=== PATIENT | male | born 1985 | race Caucasian/White ===

== ENCOUNTER 2023-07-22 07:02 | Day surgery (SDC) | payer OTHER, SELFPAY ==
[2023-07-22] VITALS (32 sets, daily range): BP systolic 103–142; BP diastolic 64–89; PULSE 62–117; RESP 12–20; TEMP 35.6–37.1; O2SAT 92–100; BMI 27.0; BMI 23.8
--- NOTE | 2023-07-22 07:40 | ED.GENADULT ---
HPI - General Adult General Chief complaint: Abdominal Pain Stated complaint: abdominal pain Time Seen by Provider: 07/22/23 07:40 History of Present Illness HPI narrative: Pt c/o right upper abdominal pain. Pt states the pain and nausea started about 4 days ago. States he had this problem about 1 month ago and was seen in the ER in [place]. Was told he has gallbladder stones. 38-year-old man presenting to the emergency department with complaint of right upper abdominal pain and nausea beginning about 3 and half days ago. Was evaluated apparently a month ago at [place] in the ER and small did not have ultrasound did have CT imaging and noted to have cholelithiasis at that time. He recalls many years history of sudden bouts of nausea, with intense vomiting and then usually a following week of nausea and discomfort. This was again similar starting again this week but was accompanied by more pain in the right upper quadrant than usual. No fever. No hematemesis described. He has been communicating with his [id number], a surgeon to suspects that his gallbladder will need to come out reassuring him that it is a rather routine procedure. Past medical with cholelithiasis, alpha-1 antitrypsin, ocd Related Data Home Medications Medication Instructions Recorded Confirmed fluoxetine 40 mg capsule 40 mg PO QAM 07/22/23 07/22/23 ondansetron 4 mg disintegrating 4 mg PO Q8H PRN 07/22/23 07/22/23 tablet Previous Rx's Medication Instructions Recorded amoxicillin 875 mg-potassium 1 tab PO BID #10 tabs 07/22/23 clavulanate 125 mg tablet hydrocodone 5 mg-acetaminophen 325 1 - 2 tab PO Q6H PRN Pain #10 tabs 07/22/23 mg tablet Allergies Allergy/AdvReac Type Severity Reaction Status Date / Time No Known Drug Allergies Allergy Verified 07/22/23 07:13 Review of Systems Status of ROS: Reports: 6 or more systems reviewed and unremarkable except as noted in History and below PFSH PFS Medical History (Updated 07/22/23 @ 10:49 by Concetta Melton MD) OCD (obsessive compulsive disorder) ?F42.9 - Obsessive-compulsive disorder, unspecified (ICD-10) Social History (Updated 07/22/23 @ 10:49 by Concetta Melton MD) Narrative: 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 Smoking Status: Never smoker How often do you have a drink containing alcohol: never AUDIT-C Alcohol total score: 0 Non-prescribed substance use: denies use Exam Narrative: Exam Narrative: Pleasant. Of good energy. Breathing easily. Lungs appear to be clear. Heart initially on vitals is tachycardic on my auscultation maybe mildly elevated rate but in a regular rhythm. Cranial nerves 2-12 look to be intact. Is wearing glasses. Abdomen with normoactive bowel sounds is soft and very mildly tender in the right upper quadrant. Extremities are well perfused without edema. Const: Vital Signs, click to edit/add: Vital Signs - 24 hr 07/22/23 10:25 07/22/23 13:17 07/22/23 13:22 Temperature 98.7 F 98.3 F Pulse Rate 88 100 88 Pulse Rate [Right Pulse Oximeter] Respiratory Rate 20 18 18 Blood Pressure 122/85 129/77 142/85 H Blood Pressure [Le ft Arm] Blood Pressure [Ri ght Arm] Pulse Oximetry 99 100 100 Oxygen Delivery Az thod Room Air Room Air Room Air 07/22/23 13:27 07/22/23 13:32 07/22/23 13:35 Temperature Pulse Rate 89 87 91 Pulse Rate [Right Pulse Oximeter] Respiratory Rate 20 18 20 Blood Pressure 116/76 122/84 128/79 Blood Pressure [Le ft Arm] Blood Pressure [Ri ght Arm] Pulse Oximetry 100 100 100 Oxygen Delivery Az thod Room Air Room Air Room Air 07/22/23 13:41 07/22/23 13:46 07/22/23 13:51 Temperature Pulse Rate 89 88 93 Pulse Rate [Right Pulse Oximeter] Respiratory Rate 20 18 18 Blood Pressure 131/86 111/64 127/86 Blood Pressure [Le ft Arm] Blood Pressure [Ri ght Arm] Pulse Oximetry 100 100 100 Oxygen Delivery Az thod Room Air Room Air Room Air 07/22/23 14:00 07/22/23 14:30 07/22/23 15:03 Temperature 98.6 F 98 F Pulse Rate 88 Pulse Rate [Right Pulse Oximeter] 71 65 Respiratory Rate 14 12 14 Blood Pressure Blood Pressure [Le ft Arm] 121/74 Blood Pressure [Ri ght Arm] 109/70 107/71 Pulse Oximetry 94 98 Oxygen Delivery Az thod Room Air Room Air Room Air 07/22/23 15:15 07/22/23 15:30 07/22/23 17:30 Temperature 97.7 F Pulse Rate Pulse Rate [Right Pulse Oximeter] 67 71 70 Respiratory Rate 14 14 16 Blood Pressure Blood Pressure [Le ft Arm] Blood Pressure [Ri ght Arm] 112/70 110/72 123/75 Pulse Oximetry 98 100 100 Oxygen Delivery Me thod Room Air Room Air Room Air 07/22/23 18:30 07/22/23 21:00 07/22/23 23:00 Temperature 97.5 F L 97.7 F Pulse Rate Pulse Rate [Right Pulse Oximeter] 85 75 62 Respiratory Rate 18 18 18 Blood Pressure Blood Pressure [Le ft Arm] Blood Pressure [Ri ght Arm] 103/71 107/89 116/72 Pulse Oximetry 100 99 97 Oxygen Delivery Me thod Room Air Room Air Room Air 07/23/23 03:00 Temperature 97.8 F Pulse Rate Pulse Rate [Right Pulse Oximeter] 84 Respiratory Rate 18 Blood Pressure Blood Pressure [Le ft Arm] Blood Pressure [Ri ght Arm] 117/71 Pulse Oximetry 99 Oxygen Delivery Me thod Room Air Documenting provider has reviewed patient's vital signs: yes Course Vital Signs Vital signs: Initial Vital Signs Temperature 96.0 F L 07/22/23 07:09 Temperature Source Temporal Artery Scan 07/22/23 07:09 Pulse Rate 117 H 07/22/23 07:09 Pulse Rhythm Regular 07/22/23 07:09 Respiratory Rate 20 07/22/23 07:09 Blood Pressure 125/80 07/22/23 07:09 Blood Pressure Mean 95 07/22/23 07:09 Blood Pressure Position Sitting 07/22/23 07:09 Pulse Oximetry 100 07/22/23 07:09 Oxygen Delivery Method Room Air 07/22/23 07:09 Vital Signs Temperature 96.0 F L 07/22/23 07:09 Pulse Rate 117 H 07/22/23 07:09 Respiratory Rate 20 07/22/23 07:09 Blood Pressure 125/80 07/22/23 07:09 Pulse Oximetry 100 07/22/23 07:09 Oxygen Delivery Method Room Air 07/22/23 07:09 Temperature 97.8 F 07/23/23 03:00 Pulse Rate 84 07/23/23 03:00 Respiratory Rate 18 07/23/23 03:00 Blood Pressure 117/71 07/23/23 03:00 Pulse Oximetry 99 07/23/23 03:00 Oxygen Delivery Method Room Air 07/23/23 03:00 Medical Decision Making MDM Narrative Medical decision making narrative: Story does sound consistent with biliary colic in the setting of cholelithiasis. Possibly cholecystitis. Will check labs though for lipase, transaminases. Could be constipation or gas. Maybe kidney stones, vascular disruption. Ordered for L of normal saline does not feel he needs anything for pain or nausea. White count and transaminases are reassuring/normal. CRP is 4.1 Discussed ultrasound findings with mechanic and welder indicating thickening gallbladder wall and impacted stone in the neck. Radiology over-read as below FINDINGS: Liver: Normal in size and echotexture. No masses. No intrahepatic biliary dilatation. Gallbladder: Filled with sludge with non mobile stone at the gallbladder neck measuring 3.7 centimeters. Mild gallbladder wall thickening at 4 millimeters. Positive sonographic Sanders sign. Common bile duct: 6 mm. Pancreas: Partially obscured by bowel gas without discrete lesion. Right kidney: Normal in size. Normal echotexture and cortex. No masses, stones, or hydronephrosis. Vasculature: Proximal abdominal aorta and IVC are normal. IMPRESSION: Cholelithiasis with gallbladder sludge, gallbladder wall thickening and positive sonographic Sanders`s sign suggestive of cholecystitis. I discussed these findings with our general surgeon on-call who is evaluating this case. Anticipating surgery yet this morning Lab Data Lab results reviewed: Yes I reviewed the patient's lab results Labs: Lab Results 07/22/23 Range/Units 07:50 WBC 9.55 (4.50-11.00) K/uL RBC 5.45 (4.30-5.90) m/uL Hgb 15.3 (13.5-17.5) gm/dL Hct 44.9 (37.0-53.0) % MCV 82 (80-100) fL MCH 28 (26-34) pg MCHC 34 (32-36) gm/dL RDW Coeff of Henrique 11.5 (11.5-15.5) % Plt Count 359 (140-440) K/uL Neut % (Auto) 76.4 H (42.0-72.0) % Lymph % (Auto) 15.1 L (20-44) % [place] % (Auto) 7.6 (0.0-11.0) % Eos % (Auto) 0.4 (0.0-7.0) % Baso % (Auto) 0.2 (0.0-3.0) % Neut # (Auto) 7.30 H (1.7-7.0) K/uL Lymph # (Auto) 1.40 (0.90-2.90) K/uL [place] # (Auto) 0.70 (0.00-0.90) K/UL Eos # (Auto) 0.04 (0.00-0.50) K/uL Baso # (Auto) 0.02 (0.00-0.30) K/uL Abs Immat Gran (auto) 0.03 (0.00-0.30) K/uL Imm/Tot Granulo (auto) 0.3 % Sodium 141 (135-149) mmol/L Potassium 3.8 (3.6-5.1) mmol/L Chloride 102 (96-114) mmol/L Carbon Dioxide 30 (20-32) mmol/L Anion Gap 9 (7-15) mEq/L BUN 10 (5-24) mg/dL Creatinine 0.8 (0.5-1.5) mg/dL Estimated Creat Clear 144.14 Estimated GFR 115 ml/min Glucose 117 H (60-115) mg/dL Lactate 1.1 (0.5-1.9) mmol/L Calcium 9.7 (8.4-10.6) mg/dL Total Bilirubin 1.0 (0.1-1.5) mg/dL Direct Bilirubin 0.1 (0.0-0.5) mg/dL AST 27 (12-35) U/L ALT 31 (4-50) U/L Alkaline Phosphatase 69 (40-150) U/L C-Reactive Protein 4.1 H (0.5-1.0) mg/dL Total Protein 8.1 (6.0-8.3) g/dL Albumin 4.7 (3.3-5.0) g/dL Lipase 57 (23-300) U/L Ethyl Alcohol < 0.01 L (0.01-0.03) % Discharge Plan Discharge Clinical Impression: Calculous cholecystitis Patient Disposition: XFER to OR Condition: Stable
--- NOTE | 2023-07-22 07:44 | CRLHL7_ITS ---
For Patients: As a result of the Century Cures Act, medical imaging exams and procedure reports are released immediately into your electronic medical record. You may view this report before your referring provider. If you have questions, please contact your health care provider. INDICATION: Right upper quadrant abdomen pain TECHNIQUE: Ultrasound abdomen limited. Sonographic images of the right upper quadrant were obtained using mccain-scale and color Doppler images. COMPARISON: None FINDINGS: Liver: Normal in size and echotexture. No masses. No intrahepatic biliary dilatation. Gallbladder: Filled with sludge with non mobile stone at the gallbladder neck measuring 3.7 centimeters. Mild gallbladder wall thickening at 4 millimeters. Positive sonographic Sanders sign. Common bile duct: 6 mm. Pancreas: Partially obscured by bowel gas without discrete lesion. Right kidney: Normal in size. Normal echotexture and cortex. No masses, stones, or hydronephrosis. Vasculature: Proximal abdominal aorta and IVC are normal. IMPRESSION: Cholelithiasis with gallbladder sludge, gallbladder wall thickening and positive sonographic Sanders`s sign suggestive of cholecystitis. Dictated by Kartik Cabrera MD @ 07/22/2023 9:01:44 AM (Electronically Signed)
[2023-07-22 08:00] LABS: Lactate* 1.1 mmol/L (0.5-1.9)
[2023-07-22] MEDS: 0.9 % SODIUM CHLORIDE 1000 ml 1,000 ML IV (08:05)
[2023-07-22 08:18] LABS: Albumin* 4.7 g/dL (3.3-5.0)
[2023-07-22 08:20] LABS: Chloride* 102 mmol/L (96-114); Potassium* 3.8 mmol/L (3.6-5.1); Sodium* 141 mmol/L (135-149)
[2023-07-22 08:21] LABS: Bilirubin Direct* 0.1 mg/dL (0.0-0.5); Total Protein* 8.1 g/dL (6.0-8.3)
[2023-07-22 08:22] LABS: Alanine Aminotransferase* 31 U/L (4-50); Alkaline Phosphatase* 69 U/L (40-150); Aspartate Amino Transferase* 27 U/L (12-35); Creatinine* 0.8 mg/dL (0.5-1.5); Est. Creatinine Clearance* 144.14; Estimated Glomerular Filt Rate 115 ml/min; Lipase* 57 U/L (23-300)
[2023-07-22 08:23] LABS: Anion Gap 9 mEq/L (7-15); Blood Urea Nitrogen* 10 mg/dL (5-24); Calcium* 9.7 mg/dL (8.4-10.6); Carbon Dioxide* 30 mmol/L (20-32); Glucose* 117 mg/dL (60-115); Hematocrit 44.9 % (37.0-53.0); Hemoglobin* 15.3 gm/dL (13.5-17.5); Mean Corpuscular Hemoglobin 28 pg (26-34); Mean Corpuscular Volume 82 fL (80-100); Red Blood Count 5.45 m/uL (4.30-5.90); White Blood Count* 9.55 K/uL (4.50-11.00)
[2023-07-22 08:24] LABS: Basophils Absolute Auto 0.02 K/uL (0.00-0.30); Basophils Percent Auto 0.2 % (0.0-3.0); Eosinophils Absolute Auto 0.04 K/uL (0.00-0.50); Eosinophils Percent Auto 0.4 % (0.0-7.0); Immature Granulocytes Abs Auto 0.03 K/uL (0.00-0.30); Immature Granulocytes Pct Auto 0.3 %; Lymphocytes Percent Auto 15.1 % (20-44); Mean Corpuscular HGB Conc 34 gm/dL (32-36); Monocytes Percent Auto 7.6 % (0.0-11.0); Neutrophils Percent Auto 76.4 % (42.0-72.0); Platelet Count* 359 K/uL (140-440); RDW Coefficient of Variation % 11.5 % (11.5-15.5)
[2023-07-22 08:25] LABS: C Reactive Protein* 4.1 mg/dL (0.5-1.0)
[2023-07-22 08:33] LABS: Slide Review Reflex No
[2023-07-22 08:34] LABS: Ethanol* < 0.01 % (0.01-0.03)
[2023-07-22] MEDS: LACTATED RINGERS 1000 ML 1,000 ML 100 ML IV ×2 (10:40→14:14)
--- NOTE | 2023-07-22 10:45 | P.GSHP_ITS ---
History of Present Illness History of Present Illness Date Seen: 07/22/23 Chief complaint: abdominal pain Narrative: Adriano Marcelo is a 38 year old male Who presents to the emergency department with several days of abdominal pain and vomiting. He has had similar symptoms in the past for approximately 10 years. He states approximately once a year he will have nausea vomiting after a meal. He states that he will have pain all over his abdomen and vomiting for about a week. He states that by the end of the week he is a mess. As mention this occurs about once a year. This year he has had it 4 times. A month ago when he was in [place], he had similar symptoms. He ended up in the emergency department. A CT scan revealed that he had gallstones. There was no inflammation at the time. He was discharged home. On evening after having fried chicken for lunch she again developed pain and vomited once. He took Zofran which helped. He then noted right upper quadrant pain. This is the 1st time he has been able to pinpoint the pain in his right upper quadrant. This pain persisted throughout the weekend even though he was able to do regular activities. He did vomit once each evening over the weekend and again this morning and then came in to be seen. He has been taking in a small amount of oral intake. He last ate at 9:00 p.m.. Denies fevers but states that he does get sweaty and lightheaded with vomiting. He states that the pain is worse with standing. He states his bowel movements have not changed significantly but might be a bit looser and darker though not bloody. 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 Smoking Status: Never smoker How often do you have a drink containing alcohol: never AUDIT-C Alcohol total score: 0 Non-prescribed substance use: denies use Meds Home Medications and Allergies Home Medications Medication Instructions Recorded Confirmed Type fluoxetine 40 mg capsule 40 mg PO QAM 07/22/23 07/22/23 History ondansetron 4 mg disintegrating 4 mg PO Q8H PRN 07/22/23 07/22/23 History tablet Allergies Allergy/AdvReac Type Severity Reaction Status Date / Time No Known Drug Allergies Allergy Verified 07/22/23 07:13 Exam Narrative: Exam Narrative: General appearance: Alert, cooperative, and in no distress Eyes: PERRLA, eye lids clear, and sclera white HENT Head: Normocephalic Ears: External ears normal Pulmonary: Clear to auscultation bilaterally Cardiovascular Heart: Regular rate and rhythm Extremities: warm and well perfused Gastrointestinal Abdominal: No scars. Mildly tender in the right upper quadrant. Mildly positive Sanders sign. Musculoskeletal: Extremities: Upper: Both upper extremities have normal joint range of motion and intact strength. Lower: Both lower extremities have normal joint range of motion and intact strength. Skin: Normal skin color, texture, and turgor. Neurologic: No focal deficits Psychiatric: Alert, oriented, cooperative, normal affect. Const: Vital Signs, click to edit/add: Vital Signs - 24 hr 07/22/23 07:09 07/22/23 08:11 07/22/23 08:12 Temperature 96.0 F L Pulse Rate 77 78 Pulse Rate [Right Pulse Oximeter] 117 H Respiratory Rate 20 Blood Pressure 119/80 Blood Pressure [Ri ght Upper Arm] 125/80 Pulse Oximetry 100 96 96 Oxygen Delivery [facility] Room Air 07/22/23 08:15 07/22/23 08:30 07/22/23 08:49 Temperature Pulse Rate 75 74 89 Pulse Rate [Right Pulse Oximeter] Respiratory Rate Blood Pressure Blood Pressure [Ri ght Upper Arm] Pulse Oximetry 95 100 100 Oxygen Delivery [facility] 07/22/23 08:50 07/22/23 08:51 07/22/23 09:00 Temperature Pulse Rate 80 77 83 Pulse Rate [Right Pulse Oximeter] Respiratory Rate Blood Pressure 125/88 Blood Pressure [Ri ght Upper Arm] Pulse Oximetry 100 100 100 Oxygen Delivery [facility] 07/22/23 09:01 07/22/23 09:15 07/22/23 09:30 Temperature Pulse Rate 80 82 92 Pulse Rate [Right Pulse Oximeter] Respiratory Rate Blood Pressure 118/79 Blood Pressure [Ri ght Upper Arm] Pulse Oximetry 100 100 100 Oxygen Delivery [facility] 07/22/23 09:31 07/22/23 09:45 07/22/23 10:25 Temperature 98.7 F Pulse Rate 86 88 88 Pulse Rate [Right Pulse Oximeter] Respiratory Rate 20 Blood Pressure 123/85 122/85 Blood Pressure [Ri ght Upper Arm] Pulse Oximetry 100 100 99 Oxygen Delivery Me thod Room Air Results Results Labs: LFTs within normal limits. Lipase normal. Electrolytes within normal limits CBC normal except for slight left shift CRP is elevated at 4.1. Lactate normal Abdominal ultrasound report/results: report reviewed and image reviewed Additional studies: Ultrasound of the abdomen which was performed today shows cholelithiasis with gallbladder sludge, gallbladder wall thickening and positive sonographic Sanders sign suggestive of cholecystitis. Common bile duct measured 6 mm. Assessment and Plan Assessment and plan (1) Calculous cholecystitis: Status: Acute Plan The patient is a 38-year-old male with acute cholecystitis. I explained that the treatment for this is laparoscopic cholecystectomy. We discussed the procedure as well as risks and benefits of surgery which include bleeding, infection, bile leak, conversion to open or injury to other structures, specifically the common bile duct. We also discussed the occasional need for additional procedures. We also discussed recovery. Because of the inflammation of the gallbladder and the acuity of his symptoms I recommended we proceed to surgery this morning. He agreed with this plan and signed informed consent.
--- NOTE | 2023-07-22 10:59 | W.ANESCHARGE ---
Anesthesia Charges Start Date/Time Anesthesia Start Date: 07/22/23 Anesthesia Start Time: 10:47 Stop Date/Time Anesthesia Stop Date: 07/22/23 Anesthesia Stop Time: 13:21
[2023-07-22] MEDS: PIPERACILLIN/TAZOBACTAM 3.375 GM INJ IVPB (11:00)
--- NOTE | 2023-07-22 11:36 | W.ANESCHARGE ---
Anesthesia Charges Start Date/Time Anesthesia Start Date: 07/22/23 Anesthesia Start Time: 10:47 Stop Date/Time Anesthesia Stop Date: 07/22/23 Anesthesia Stop Time: 13:21
--- NOTE | 2023-07-22 13:13 | P.GSOP_ITS ---
Operative Note Pre-op diagnosis: Acute cholecystitis Post-op diagnosis: Same Type of Procedure: Laparoscopic cholecystectomy Indications: The patient is a 38-year-old male who presented to the emergency department with 4 days of abdominal pain and vomiting. Because the pain did not get better he came in to be seen. Workup revealed a thickened gallbladder with a large stone impacting the neck. I recommended cholecystectomy and the patient agreed to proceed. Procedure Description: After discussing the risks and benefits of the procedure, the patient signed informed consent.? The operative site was marked and the patient was brought to the operating room and placed on the operating table in supine position.? Care was taken to pad the patient's pressure points.?? The patient was then intubated by anesthesia.?? The operative site was then prepped and draped in the usual sterile fashion.? A time-out was then performed. Entrance to the abdomen was gained via a 5 mm Visiport in the left upper quadrant. The abdomen was insufflated and briefly surveyed for signs of injury. There was none. A 10 mm umbilical port was placed as well as 2 working ports along the right costal margin, all under direct vision. The patient was then placed in reverse Trendelenburg position with the right side up. The gallbladder was markedly distended and edematous. A needle was advanced into the abdomen to decompress the gallbladder. There was very thick cloudy appearing bile. I did send this for culture. Once the gallbladder was adequately decompressed, the needle was removed and the fundus was grasped and retracted cephalad. The infundibulum was grasped. A combination of hook cautery and blunt dissection was used to carefully dissect out the cystic duct and artery until they could clearly be seen entering the gallbladder without any intervening structures. Because of the edema and inflammation, the tissue was friable and bled easily. The bleeding was controlled however with cautery and small clips were needed. The gallbladder was dissected off the cystic plate to achieve the critical view. Once this was achieved the cystic duct and artery were each clipped with 2 clips proximally and 1 clip distally and transected with the scissors. The gallbladder was then taken off of the liver bed and removed from the abdomen using an Endo- Catch bag. Of note, the stone was so large that this necessitated making the fascial opening as well as the skin larger in order to remove the gallbladder and stone. The gallbladder bed was surveyed for hemostasis which appeared excellent at this point. Because a small amount of bile had spilled, the liver bed was irrigated and suctioned with copious saline. A piece of Surgicel was placed in the gallbladder bed. The ports were then removed and the abdomen desufflated. The fascial incision at the umbilicus was closed with interrupted 0 Vicryl suture. The skin was closed with absorbable subcuticular suture. Sterile dressings were then applied. Instrument sponge and needle counts were correct at the end of the case. The patient was then woken and transferred to the PACU in stable condition. ? The patient tolerated the procedure well. Findings: Acute cholecystitis with large gallstone impacting the neck. Possible gallbladder empyema Anesthesia: GENESIS Surgeon: Concetta Melton MD Estimated blood loss (mL): 100 Specimen: Gallbladder Additional Specimen Information: 1. Gallbladder 2. Bile for culture. Condition: stable Disposition: PACU Date of procedure: 07/22/23
[2023-07-22] MEDS: fentaNYL 100 MCG/2 ML inj 50 MCG IVP ×2 (13:36→13:44)
[2023-07-22] MEDS: KETOROLAC 30 MG/ML inj IVP (13:45)
[2023-07-22] MEDS: HYDROCODONE-ACETAMIN 5-325 MG 1 TAB PO (16:04)
[2023-07-22] MEDS: PIPERACILLIN/TAZOBACTAM 3.375 GM in 0.9 % SODIUM CHLORIDE Mini-bag 100 ML IVPB ×2 (16:30→22:33)
[2023-07-22] MEDS: ACETAMINOPHEN 325 MG TABLET 650 MG PO (18:38)
--- NOTE | 2023-07-22 20:12 | PC.NURSE ---
Nursing Care Hours: [id number] Pt this shift arrived from PACU alert and oriented but fatigued. Denies nausea, rating pain 2/10. Pain increased to 6/10 with movement, treated per eMAR. Ice pack on. 4 lap sites CDI. Bowel sounds hypoactive. Tolerating small amounts of fluids and food. Up to void, ambulates independently.
[2023-07-22] MEDS: LACTATED RINGERS 1000 ML 1,000 ML 125 ML IV (22:34)
[2023-07-23 03:00] VITALS: BP 117/71; PULSE 84; RESP 18; TEMP 36.6; O2SAT 99
[2023-07-23] MEDS: PIPERACILLIN/TAZOBACTAM 3.375 GM in 0.9 % SODIUM CHLORIDE Mini-bag 100 ML IVPB (05:42)
--- NOTE | 2023-07-23 06:46 | PC.NURSE ---
Shift note: Pt is doing well with pain which he rated at 2 and increase when ambulating. Independent in room, A/O. Pt tolerated regular diet well without any abdominal symptoms. Ice pack applied to the incision sites. Vitally stable.
[2023-07-23 07:00] VITALS: BP 114/81; PULSE 77; RESP 12; RESP 14; TEMP 36.6; O2SAT 98
[2023-07-23] MEDS: ACETAMINOPHEN 325 MG TABLET 650 MG PO (09:08)
[2023-07-23] MEDS: FLUOXETINE HCL 20 MG CAPSULE 40 MG PO (09:09)
--- NOTE | 2023-07-23 09:28 | PM.DS1 ---
DS: Providers Provider Date Seen: 07/23/23 Date of admission: 07/22/23 Primary care physician: Case Strong MD Admitting Clinician: Concetta Melton M.D. Attending Physician on discharge: Concetta Melton MD Date of Discharge: 07/23/23 DS: Diagnosis Discharge Diagnosis (1) Calculous cholecystitis: Status: Acute (2) S/P laparoscopic cholecystectomy: Status: Acute DS: Summary Hospital Course Hospital Course: The patient was admitted to the hospital with acute cholecystitis and underwent laparoscopic cholecystectomy urgently. There was some concern for purulence within the gallbladder and so he was kept in the hospital overnight postoperatively on antibiotics. On postop day 1 he was deemed safe for discharge, having pain which was well controlled, being afebrile and tolerating a diet without nausea. Time Spent with Patient Time attestation: Total time spent providing and/or coordinating discharge services: Exam Narrative: Exam Narrative: General: No acute distress CV: Regular rate Respiratory: Breathing nonlabored on room air Abdomen: Appropriately tender for the postop state. Incisions are clean and dry. No ecchymosis or erythema. Const: Vital Signs, click to edit/add: Vital Signs - 24 hr 07/22/23 09:30 07/22/23 09:31 07/22/23 09:45 Temperature Pulse Rate 92 86 88 Pulse Rate [Right Pulse Oximeter] Respiratory Rate Blood Pressure 123/85 Blood Pressure [Le ft Arm] Blood Pressure [Ri ght Arm] Pulse Oximetry 100 100 100 Oxygen Delivery Me thod 07/22/23 10:25 07/22/23 13:17 07/22/23 13:22 Temperature 98.7 F 98.3 F Pulse Rate 88 100 88 Pulse Rate [Right Pulse Oximeter] Respiratory Rate 20 18 18 Blood Pressure 122/85 129/77 142/85 H Blood Pressure [Le ft Arm] Blood Pressure [Ri ght Arm] Pulse Oximetry 99 100 100 Oxygen Delivery Me thod Room Air Room Air Room Air 07/22/23 13:27 07/22/23 13:32 07/22/23 13:35 Temperature Pulse Rate 89 87 91 Pulse Rate [Right Pulse Oximeter] Respiratory Rate 20 18 20 Blood Pressure 116/76 122/84 128/79 Blood Pressure [Le ft Arm] Blood Pressure [Ri ght Arm] Pulse Oximetry 100 100 100 Oxygen Delivery Me thod Room Air Room Air Room Air 07/22/23 13:41 07/22/23 13:46 07/22/23 13:51 Temperature Pulse Rate 89 88 93 Pulse Rate [Right Pulse Oximeter] Respiratory Rate 20 18 18 Blood Pressure 131/86 111/64 127/86 Blood Pressure [Le ft Arm] Blood Pressure [Ri ght Arm] Pulse Oximetry 100 100 100 Oxygen Delivery Me thod Room Air Room Air Room Air 07/22/23 14:00 07/22/23 14:30 07/22/23 15:03 Temperature 98.6 F 98 F Pulse Rate 88 Pulse Rate [Right Pulse Oximeter] 71 65 Respiratory Rate 14 12 14 Blood Pressure Blood Pressure [Le ft Arm] 121/74 Blood Pressure [Ri ght Arm] 109/70 107/71 Pulse Oximetry 94 98 Oxygen Delivery Me thod Room Air Room Air Room Air 07/22/23 15:15 07/22/23 15:30 07/22/23 17:30 Temperature 97.7 F Pulse Rate Pulse Rate [Right Pulse Oximeter] 67 71 70 Respiratory Rate 14 14 16 Blood Pressure Blood Pressure [Le ft Arm] Blood Pressure [Ri ght Arm] 112/70 110/72 123/75 Pulse Oximetry 98 100 100 Oxygen Delivery Me thod Room Air Room Air Room Air 07/22/23 18:30 07/22/23 21:00 07/22/23 23:00 Temperature 97.5 F L 97.7 F Pulse Rate Pulse Rate [Right Pulse Oximeter] 85 75 62 Respiratory Rate 18 18 18 Blood Pressure Blood Pressure [Le ft Arm] Blood Pressure [Ri ght Arm] 103/71 107/89 116/72 Pulse Oximetry 100 99 97 Oxygen Delivery Me thod Room Air Room Air Room Air 07/23/23 03:00 Temperature 97.8 F Pulse Rate Pulse Rate [Right Pulse Oximeter] 84 Respiratory Rate 18 Blood Pressure Blood Pressure [Le ft Arm] Blood Pressure [Ri ght Arm] 117/71 Pulse Oximetry 99 Oxygen Delivery Me thod Room Air DS: Data Data Completed and Pending Pending studies at discharge: Bile culture Labs on day of discharge: Preliminary micro results at discharge 07/22/23 14:20 Aerobic Culture - Preliminary Gallbladder Fluid Anaerobic Culture - Preliminary Culture in Progress 07/22/23 08:30 Blood Culture - Preliminary Blood NO GROWTH AFTER 24 HOURS 07/22/23 07:50 Blood Culture - Preliminary Blood NO GROWTH AFTER 24 HOURS Discharge Plan Discharge Disposition: Home, Self-Care Discharging Surgeon: Concetta Melton Follow-Up Appointment: 2 weeks Prescriptions: New hydrocodone-acetaminophen 5-325 mg Tablet 1 - 2 tab PO Q6H PRN (Reason: Pain) Qty: 10 0RF amoxicillin-pot clavulanate 875-125 mg tablet 1 tab PO BID Qty: 10 0RF Continued fluoxetine 40 mg capsule 40 mg PO QAM ondansetron 4 mg tablet,disintegrating 4 mg PO Q8H PRN Activity Level: No strenuous activity Activity Detail: No lifting more than 20 lb for 2 weeks Discharge Diet: Regular Patient Instructions: Hydrocodone/Acetaminophen (By mouth), Amoxicillin/Clavulanate Potassium (By mouth), Surgical Site Infections (DC), General Anesthesia (DC), Laparoscopic Cholecystectomy (DC), Post-Operative Instructions: Laparoscopic Cholecystectomy Additional Instructions: Wound care: Your sutures are under the skin and will dissolve over time. Leave steri strips (white bandages) over incisions until they fall off (or remove after 7 days). OK to shower tomorrow but avoid bathing, soaking or swimming for 2 weeks. Pat the incisions dry. No need to wash or scrub the area. Apply ice to the area as needed for swelling. It is also OK to use a heating pad if this provides more comfort to you. Pain control: You were prescribed a pain medication. This medication contains acetaminophen (Tylenol). If you are taking your prescribed pain pills 4 times daily, do not take additional acetaminophen. As your pain improves, you can try taking acetaminophen instead of the prescribed pain pill. It is ok to take Ibuprofen or Naproxen (per directions on packaging). This medication helps with inflammation and swelling. Take an [id number] stool softener while you are taking prescribed pain medications to help alleviate constipation. I recommend Senna and/or Colace. Take as directed on package. If you have not had a bowel movement in 3 days, try taking Miralax as directed on the package. All of these are available over the counter. Follow-up Follow up with Dr. Melton in 2-3 weeks Please call if you are experiencing severe pain, nausea, vomiting, difficulty urinating, fever or have not had bowel movement in 4 days after surgery. Forms: Work/School Release Follow-up: Concetta Melton MD [Emergency Provider] - 07/30/23 10:30 am ([facility] for postop flooow-up.) Provider,Not a Local [Referring] - Discharge Orders: Discharge Order (Routine); Ordered 07/23/23 Ordered By: Concetta Melton
[2023-07-23 11:00] VITALS: BP 115/79; PULSE 72; RESP 14; TEMP 36.8; O2SAT 100
--- NOTE | 2023-07-23 17:10 | PC.NURSE ---
Nursing Care Hours: [id number] pt this shift calm and cooperative, alert and oriented. Independent ambulation in room. C/o pain to abdomen, treated per eMAR and ice pack, treatment effective. Tolerating regular diet, denies nausea. Lap sites CDI. Bowel sounds active x4. IV removed for discharge. Went over discharge instructions, answered all questions and concerns. Ambulated off the unit, picked up by a friend at front door.
== END 2023-07-23 11:01 | disposition home or self-care (01) ==
LOC: ED 09:57 → SS 10:10 → MEDSURG 14:21
PROVIDERS: Family Medicine; Emergency Provider Surgery; PCP Student in an Organized Health Care Education/Training Program; Visit Provider Surgery
PROC: 0FT44ZZ Resection of Gallbladder, Percutaneous Endoscopic Approach (ICD-10-PCS; CPT 47562; principal; 2023-07-22 11:30)
DX: K80.00 Calculus of gallbladder with acute cholecystitis without obstruction (principal)
CPT/HCPCS: 47562; 36415; 76705; 790; 80048; 80076; 81001; 82077; 83605; 83690; 85025; 86140; 87040; 87070; 87075; 87205; 88304; 99284; 99285; A9270; J0330; J1100; J1170; J1885; J2250; J2405; J2543; J2704; J3010; J3490; J7030; J7120

== ENCOUNTER 2024-01-17 09:26 | Emergency (ER) | payer OTHER, SELFPAY ==
[2024-01-17 09:38] VITALS: BP 117/92; PULSE 108; RESP 18; TEMP 36.3; O2SAT 99; BMI 25.7
--- NOTE | 2024-01-17 10:32 | ED.ABDPAIN ---
HPI - Abdominal Pain General Chief Complaint: Abdominal Pain Stated Complaint: Abdominal pain, vomiting Time Seen by Provider: 01/17/24 10:24 History of Present Illness HPI narrative: This 38-year-old male comes in with episodes of crampy abdominal pain with nausea and vomiting. This happened about a week ago and then he felt fine until 3 days ago when he had another severe cramp with nausea and vomiting. He felt fine again the next 2 days until today when he had more of the same. He did have his gallbladder out about 6 months ago and states that he has been doing well except that some of these symptoms feel similar. He has not had any fever. He does not report any diarrhea. Related Data Home Medications Medication Instructions Recorded Confirmed fluoxetine 40 mg capsule 40 mg PO QAM 07/22/23 01/17/24 ondansetron 4 mg disintegrating 4 mg PO Q8H PRN 07/22/23 07/22/23 tablet Previous Rx's Medication Instructions Recorded amoxicillin 875 mg-potassium 1 tab PO BID #10 tabs 07/22/23 clavulanate 125 mg tablet hydrocodone 5 mg-acetaminophen 325 1 - 2 tab PO Q6H PRN Pain #10 tabs 07/22/23 mg tablet ketorolac 10 mg tablet 10 mg PO Q8H 5 days #15 tabs 01/17/24 ondansetron HCl 4 mg tablet 4 mg PO Q6H #20 tabs 01/17/24 Allergies Allergy/AdvReac Type Severity Reaction Status Date / Time No Known Drug Allergies Allergy Verified 01/17/24 09:42 Review of Systems Status of ROS Reports: 10 or more systems reviewed and unremarkable except as noted in History and below Narrative Constitutional: No fevers, no weight gain or loss. Eyes: No discharge. No vision changes. HENT: No congestion, no sore throat, no ear pain. Cardiovascular: No chest pain, no palpitations. Respiratory: No shortness of breath, no wheezes, no cough. Gastrointestinal: Abdominal pain episodes with vomiting as described above. Genitourinary: No dysuria, no hematuria. Musculoskeletal: Normal range of motion. Skin: No rashes, no pruritis. Neurological: No dizziness, weakness, sensory change, speech change. Endo/Heme/Allergies: No bruising or bleeding. No polydipsia. Pysch: no suicidality, no anxiety, no insomnia. All other systems reviewed and are negative. 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 Smoking Status: Never smoker How often do you have a drink containing alcohol: never AUDIT-C Alcohol total score: 0 Non-prescribed substance use: denies use Exam Narrative: Exam Narrative: Constitutional: Well-developed, well-nourished, no acute distress. HEENT: Normocephalic, atraumatic. Neck: Normal range of motion. Nontender. Supple. Heart: Regular. No murmurs. Normal rate. Intact distal pulses. Lungs: Clear to auscultation. No chest discomfort. No wheezes, rhonchi, or rales. Abdomen: Normal bowel sounds. Nontender. No rebound tenderness. Genitalia: Deferred. Back: No midline tenderness. Normal range of motion. Extremities: Normal range of motion. No injury. Skin: Intact. No rash. Warm. No erythema or pallor. Neurologic: No altered sensation. No weakness. Alert and oriented. Psychiatric: No suicidality. No anxiety or depression. No insomnia. Nursing notes and vitals signs are reviewed. Const: Vital Signs, click to edit/add: Vital Signs - 24 hr 01/17/24 09:38 Temperature 97.4 F L Pulse Rate [Right Pulse Oximeter] 108 H Respiratory Rate 18 Blood Pressure [Le ft Upper Arm] 117/92 H Pulse Oximetry 99 Oxygen Delivery Me thod Room Air Course Vital Signs Vital signs: Initial Vital Signs Temperature 97.4 F L 01/17/24 09:38 Temperature Source Temporal Artery Scan 01/17/24 09:38 Pulse Rate 108 H 01/17/24 09:38 Pulse Rhythm Regular 01/17/24 09:38 Respiratory Rate 18 01/17/24 09:38 Blood Pressure 117/92 H 01/17/24 09:38 Blood Pressure Mean 100 01/17/24 09:38 Blood Pressure Position Sitting 01/17/24 09:38 Pulse Oximetry 99 01/17/24 09:38 Oxygen Delivery Method Room Air 01/17/24 09:38 Vital Signs Temperature 97.4 F L 01/17/24 09:38 Pulse Rate 108 H 01/17/24 09:38 Respiratory Rate 18 01/17/24 09:38 Blood Pressure 117/92 H 01/17/24 09:38 Pulse Oximetry 99 01/17/24 09:38 Oxygen Delivery Method Room Air 01/17/24 09:38 Temperature 97.4 F L 01/17/24 09:38 Pulse Rate 108 H 01/17/24 09:38 Respiratory Rate 18 01/17/24 09:38 Blood Pressure 117/92 H 01/17/24 09:38 Pulse Oximetry 99 01/17/24 09:38 Oxygen Delivery Method Room Air 01/17/24 09:38 Medications Administered Medications: Generic Name Dose Route Start Last Admin Trade Name Freq PRN Reason Stop Dose Admin Sodium Chloride 1,000 mls @ 1,000 mls/hr 01/17/24 10:45 01/17/24 10:38 0.9 % Sodium Chloride 1000 Ml IV 01/17/24 11:44 1,000 mls/hr .Q1H FARNAZ Administration Discontinued Medications Generic Name Dose Route Start Last Admin Trade Name Freq PRN Reason Stop Dose Admin Ondansetron HCl 4 mg 01/17/24 10:31 01/17/24 10:39 Ondansetron 2 Mg/Ml Inj IVP 01/17/24 10:32 4 mg ONCE ONE Administration MDM - Abdominal Pain MDM Narrative Medical decision making narrative: This patient comes in reporting some episodes of crampy abdominal pain in the upper epigastric region with associated vomiting and nausea. An IV was established where he did receive a L of normal saline and 4 mg of Zofran. He is feeling better. Labs are acquired and these returned with reassuring findings. I did discuss imaging options with the patient but he declined these for now. The patient's vital signs are reassuring and along with lab results and exam he is okay to return home. I did provide prescription for Zofran and Toradol. I encouraged him also to use a proton pump inhibitor such as Prilosec. Lab Data Labs: Lab Results 01/17/24 Range/Units 09:50 WBC 7.60 (4.50-11.00) K/uL RBC 5.93 H (4.30-5.90) m/uL Hgb 16.9 (13.5-17.5) gm/dL Hct 48.2 (37.0-53.0) % MCV 81 (80-100) fL MCH 29 (26-34) pg MCHC 35 (32-36) gm/dL RDW Coeff of Henrique 11.7 (11.5-15.5) % Plt Count 376 (140-440) K/uL Neut % (Auto) 64.0 (42.0-72.0) % Lymph % (Auto) 26.6 (20-44) % Saunders % (Auto) 8.6 (0.0-11.0) % Eos % (Auto) 0.3 (0.0-7.0) % Baso % (Auto) 0.4 (0.0-3.0) % Neut # (Auto) 4.87 (1.7-7.0) K/uL Lymph # (Auto) 2.02 (0.90-2.90) K/uL Saunders # (Auto) 0.70 (0.00-0.90) K/UL Eos # (Auto) 0.02 (0.00-0.50) K/uL Baso # (Auto) 0.03 (0.00-0.30) K/uL Abs Immat Gran (auto) 0.01 (0.00-0.30) K/uL Imm/Tot Granulo (auto) 0.1 % Sodium 140 (135-149) mmol/L Potassium 3.7 (3.6-5.1) mmol/L Chloride 99 (96-114) mmol/L Carbon Dioxide 29 (20-32) mmol/L Anion Gap 12 (7-15) mEq/L BUN 15 (5-24) mg/dL Creatinine 0.9 (0.5-1.5) mg/dL Estimated Creat Clear 128.12 Estimated GFR 111 ml/min Glucose 116 H (60-115) mg/dL Calcium 10.0 (8.4-10.6) mg/dL Total Bilirubin 1.2 (0.1-1.5) mg/dL Direct Bilirubin 0.2 (0.0-0.5) mg/dL AST 30 (12-35) U/L ALT 27 (4-50) U/L Alkaline Phosphatase 61 (40-150) U/L Total Protein 8.9 H (6.0-8.3) g/dL Albumin 5.3 H (3.3-5.0) g/dL Lipase 73 (23-300) U/L SARS-CoV-2 (PCR) Negative SARS-CoV-2 (Negative) Influenza Type A (PCR) Negative PCR FLU A (Negative) Influenza Type B (PCR) Negative PCR FLU B (Negative) Discharge Plan Discharge Clinical Impression: Gastroenteritis Patient Disposition: Home, Self-Care Condition: Improved Additional Instructions: Take medication as needed and indicated. That it is also recommended that she use Prilosec, Nexium, or Prevacid as needed and directed. Follow up with MD or return if symptoms are persistent or worsening. Prescriptions: New ondansetron HCl 4 mg tablet 4 mg PO Q6H Qty: 20 0RF ketorolac 10 mg tablet 10 mg PO Q8H 5 Days Qty: 15 0RF No Action fluoxetine 40 mg capsule 40 mg PO QAM ondansetron 4 mg tablet,disintegrating 4 mg PO Q8H PRN hydrocodone-acetaminophen 5-325 mg Tablet 1 - 2 tab PO Q6H PRN (Reason: Pain) Qty: 10 0RF amoxicillin-pot clavulanate 875-125 mg tablet 1 tab PO BID Qty: 10 0RF Follow Up/Referrals: Case Strong MD [Primary Care Provider] - Stand Alone Forms: [facility] Info Instructions
[2024-01-17 10:38] LABS: Basophils Absolute Auto 0.03 K/uL (0.00-0.30); Basophils Percent Auto 0.4 % (0.0-3.0); Eosinophils Absolute Auto 0.02 K/uL (0.00-0.50); Eosinophils Percent Auto 0.3 % (0.0-7.0); Hematocrit 48.2 % (37.0-53.0); Hemoglobin* 16.9 gm/dL (13.5-17.5); Immature Granulocytes Abs Auto 0.01 K/uL (0.00-0.30); Immature Granulocytes Pct Auto 0.1 %; Lymphocytes Absolute Auto 2.02 K/uL (0.90-2.90); Lymphocytes Percent Auto 26.6 % (20-44); Mean Corpuscular HGB Conc 35 gm/dL (32-36); Mean Corpuscular Hemoglobin 29 pg (26-34); Mean Corpuscular Volume 81 fL (80-100); Monocytes Percent Auto 8.6 % (0.0-11.0); Neutrophils Absolute Auto 4.87 K/uL (1.7-7.0); Platelet Count* 376 K/uL (140-440); RDW Coefficient of Variation % 11.7 % (11.5-15.5); Red Blood Count 5.93 m/uL (4.30-5.90)
[2024-01-17] MEDS: 0.9 % SODIUM CHLORIDE 1000 ml 1,000 ML IV (10:38)
[2024-01-17] MEDS: ONDANSETRON 2 MG/ML inj 4 MG IVP (10:39)
[2024-01-17 10:41] LABS: PCR FLU A Negative PCR FLU A (Negative); PCR FLU B Negative PCR FLU B (Negative); SARS PCR* Negative SARS-CoV-2 (Negative)
[2024-01-17 10:44] LABS: Slide Review Reflex No
[2024-01-17 10:51] LABS: Albumin* 5.3 g/dL (3.3-5.0)
[2024-01-17 10:52] LABS: Chloride* 99 mmol/L (96-114); Potassium* 3.7 mmol/L (3.6-5.1); Sodium* 140 mmol/L (135-149)
[2024-01-17 10:54] LABS: Anion Gap 12 mEq/L (7-15); Bilirubin Direct* 0.2 mg/dL (0.0-0.5); Bilirubin Total* 1.2 mg/dL (0.1-1.5); Carbon Dioxide* 29 mmol/L (20-32); Creatinine* 0.9 mg/dL (0.5-1.5); Est. Creatinine Clearance* 128.12; Estimated Glomerular Filt Rate 111 ml/min
[2024-01-17 10:55] LABS: Alanine Aminotransferase* 27 U/L (4-50); Alkaline Phosphatase* 61 U/L (40-150); Aspartate Amino Transferase* 30 U/L (12-35); Blood Urea Nitrogen* 15 mg/dL (5-24); Glucose* 116 mg/dL (60-115); Lipase* 73 U/L (23-300); Total Protein* 8.9 g/dL (6.0-8.3)
== END 2024-01-17 11:44 | disposition home or self-care (01) ==
PROVIDERS: Emergency Provider Emergency Medicine Emergency Medical Services; PCP Student in an Organized Health Care Education/Training Program
DX: K52.9 Noninfective gastroenteritis and colitis, unspecified (principal)
CPT/HCPCS: 36415; 80048; 80076; 83690; 85025; 87631; 96361; 96374; 99284; J2405; J7030

== ENCOUNTER 2024-12-04 11:58 | Emergency (ER) | payer OTHER, SELFPAY ==
--- OUTSIDE RECORDS SUMMARY | 2024-12-04 12:00 | XMS_ITS | Clinical Summary ---
Author Organization [facility] Address [place], [place] [address] Care Team Providers Care Locker Room Clerk Name Role Phone Votel, Cassius Rodriguez MD Primary Care Provider + Allergies No known active allergies Medications fluticasone (50 mcg per actuation) nasal solution (FLONASE) Inhale 1 [place] into both nostrils once daily. 1 Bottle 0 6 Active FLUoxetine (PROZAC) 40 mg capsuleIndicatio ns:Obsessive-com pulsive disorder, unspecified type TAKE 1 CAPSULE BY MOUTH EVERY DAY IN THE MORNING 90 Capsule 4 Active Active Problems Problem Noted Date Diagnosed Date Occupational circumstances 02/09/2013 Unspecified hearing loss 02/09/2013 Overview (02/09/2013): both ears, low to mid frequency mild rising to normal high frequencies Immunizations Name Administration Dates Next Due COVID-19 VACCINE SPIKEVAX (M ODERNA 50MCG/0.5ML) 12YO+ PFS 10/07/2023 COVID-19 vaccine (Moderna 100mcg/0.5mL) PF, MDV 10/13/2021,03/09/2021,02/09/2021 Hepatitis B (Adult) 08/23/1997,04/22/1997,1996 Hepatitis B, Unspecified 08/23/1997,04/22/1997,0 02/26/1997 Influenza A (H1N1), Inactivated 11/30/2009 Influenza Virus, Unspecified 07/14/2015,07/15/20 14,07/16/2012 Influenza, IIV3 (Age 6-35 mos) 07/16/2018 Influenza, IIV3 (Age >=3 years) 07/17/2013,07/16 Influenza, IIV4 10/07/2023,,07/20/2019,2014,07/15/2014 Influenza, IIV4 (=>6mos) MDV 07/17/2017,08/17/20 16 MMR 02/26/1997,08/03/1985 TD, UNSPECIFIED 02/26/1997 Td (Age >=7 Years) 02/26/1997 Td, Preservative Free (age > = 7 Years) 02/26/1997 Tdap 02/09/2013 Family History Medical History Relation Name Comments Heart Disease Father [id number] Relation Name Status Comments Brother Alive Father (Age 63) Mother Alive Social History Tobacco Use Types Packs/Day Years Used Date Smoking Tobacco: Never Smokeless Tobacco: Never Tobacco Cessation:Counseling Given: Yes Alcohol Use Standard Drinks/Week Comments Not Currently 0 (1 standard drink = 0.6 oz pur e alcohol) rare PHQ-2 Answer Date Recorded PHQ-2 TOTAL SCORE 0 08/22/2022 Social Connections Answer Date Recorded Frequency of Communication with Friends and Fami ly Not on file 05/11/2024 Financial Resource Strain Answer Date R ecorded Difficulty of Paying Living Expenses 3 04/24/2023 Difficulty of Paying Living Expenses Not on file 04/24/2023 Food Insecurity Answer Date Recorded Worried About Running Out of Food in the Last Ye ar 1 04/24/2023 Transportation Needs Answer Date Record ed Lack of Transportation (Medical) 1 04/24/2023 Housing Stability Answer Date Recorded Unable to Pay for Housing in the Last Year 1 04/24/2023 Sex and Gender Information Value Date Recorded Sex Assigned at Not on file Legal Sex Male 9:04 AM CDT Gender Identity Not on file Sexual Orientation Not on file 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 Not on file Not on file Obstetrics History Last Filed Vital Signs Vital Sign Reading Time Taken Comments Blood Pressure 112/78 04/24/2023 11:17 AM CDT Pulse 72 04/24/2023 11:17 AM CDT Temperature 36.6 C (97.9 F) 04/24/2023 11:17 AM CDT Respiratory Rate - - Oxygen Saturation 100% 04/24/2023 11:17 AM CDT Inhaled Oxygen Concentration - - Weight 85.3 kg (188 lb) 04/24/2023 11:17 AM CDT Height 188 cm (6' 2) 07/31/2022 7:47 AM CDT Body Mass Index 24.14 07/31/2022 7:47 AM CDT Plan of Treatment Health Maintenance Due Date Last Done Comments HIV for age 15-65 1999 Hepatitis C screening for age 18-79 2002 Lipids for age 35-44 2019 Tetanus booster 02/09/2023 02/09/2013, 02/09, 02/26/1997, Additional history exists BMI (ht and wt on same day) for age 18+ 07/31/2023 07/31/2022, 09/25/2018, 06/24/2018, Additional history exists Depression screening for age 12+ 08/22/2023 08/22/2022, 07/31/2022, 06/07/2021, Additional history exists COVID-19 vaccine series (2023- season) 2024 10/07/2023, 10/13/2021, 03/09/2021, Additional history exists Influenza for age 9-49 07/12/2024 , 10/13/2021, 07/20/2019, Additional history exists Tdap Completed 02/09/2013 Pneumococcal series for age 6-49 Aged Out No longer eligible based on patient's age to complete this topic Care Teams Locker Room Clerk Relationship Specialty Start Date End Date Votel, Cassius Rodriguez MD [address] [place] [address] PCP - General Family Practice 02/06/18
--- OUTSIDE RECORDS SUMMARY | 2024-12-04 12:00 | XMS_ITS | Clinical Summary ---
Author Organization [facility] Address [address] [place] [address] Care Team Providers Care Snuff Grinder And Screener Name Role Phone Carlos Enrique Strong M.D. Primary Care Provider [phone] Source Comments Patient records contain information from all sites at [facility]. For routine questions regarding patient records, call [phone] during business hours, M-F 8:00 AM - 5:00 PM Central Time. Record requests for emergency care only can be directed to [phone] at any time.[facility] Allergies No known active allergies Medications * This document contains information received from the source organization and may not represent a complete record from that organization. FLUoxetine (PROzac) 40 mg capsule Take 1 capsule (40 mg total) by mouth every morning. 90 capsule 3 02/11/20 24 Active omeprazole (PriLOSEC) [address] capsuleIndications :Pain Right Upper Quadrant,Nausea And Vomiting Take 1 capsule (20 mg total) by mouth daily. 90 capsule 3 02/17/20 24 025 Active Additional Information Patient taking differently:20 mg oralAs needed, Reported on 10/06/2024 ondansetron ODT (ZOFRAN-ODT) 4 mg disintegrating tabletIndications: Nausea Dissolve 1 tablet (4 mg total) in the mouth every 8 (eight) hours as needed for nausea or vomiting for up to 10 doses. 10 tablet 03/09/20 24 Active Active Problems Problem Noted Date Diagnosed Date Pain Epigastric 10/06/2024 Gastroesophageal Reflux Disease Without Esophagi tis 10/06/2024 Deficiency Alpha 1 Antitrypsin 05/29/2023 Depression Major One Episode Full Remission 01/09 Encounters Date Type Department Care Team Description 11/26/2024 3:03 PM WEIGHER BULKER - 11/26/2024 11:59 PM WEIGHER BULKER Hospital Encounter Department of Laboratory Medicine in [address] [phone] Carlos Enrique Strong M.D. Encounter For Screening For Respiratory Tuberculosis Discharge Disposition: Home or Self Care 10/06/2024 9:00 AM WEIGHER BULKER Office Visit Department of Gastroenterology in [address] [phone] Elsy Qureshi APRN, C.N.P., D.N.P., M.S.N. Gastroesophageal Reflux Disease Without Esophagitis (Primary Dx); Pain Epigastric; Nausea; Gastroenteritis Viral Or Presumed Viral; Deficiency Alpha 1 Antitrypsin (HCC) Discharge Disposition: Home or Self Care from Last 3 Months Immunizations Immunization Administration Dates Next Due HepB, Unspecified 08/23/1997,04/22/1997,02/26/19 97 Influenza TIV (IM) 07/16/2012 Influenza, Injectable, Quadrivalent 07/17/2017 Influenza, Unspecified 07/14/2015,07/15/2014 MMR 02/26/1997,08/03/1985 SARS-COV-2 (COVID-19) - MODE RNA (12 YEARS AND OLDER) Fall Seasonal 10/06/2024 SARS-COV-2 (COVID-19) - MODERNA(Discontinued) 10/13/2021 Td, (Adult) Unspecified 02/26/1997,02/26/1997 Tdap 08/07/2023,02/09/2013 influenza trivalent vaccine (6 months and older)(PF) 10/06/2024,07/16/2018 influenza vaccine quad (FLUZ ONE/FLUARIX) (6 months and older)(PF) 10/13/2021,07/20/2019 Family History Medical History Relation Name Comments Coronary artery disease Father Mc Marcelo Sandeep ntified very very low ejection fraction at ~60. Treatment worked well and heart looked much better. of ventricular fibrillation at 64. Migraines Father Mc Marcelo Had sporadic b ad headaches. Maybe not migranes. Other cancer Mother Armida Marcelo Benign growth a ttached to nerve near hip. Had surgically removed. No other treatment needed Breast cancer Paternal Grandmother Angelica Marcelo i n early 60s. Relation Name Status Comments Father Mc Marcelo Mother Armida Marcelo Paternal Grandmother Angelica Marcelo Social History Tobacco Use Types Packs/Day Years Used Date Smoking Tobacco: Former Smokeless Tobacco: Never Tobacco Cessation:Counseling Given: Not Answered Alcohol Use Standard Drinks/Week Comments Yes 0 (1 standard drink = 0.6 oz pur e alcohol) occasional [facility] Utilities Answer Date Recorded In the past 12 months has e electric, gas, oil, or water [employer] threatened to shut off services in your home? No 02/16/2024 Humiliation, Afraid, Rape, and Kick questionnair e Answer Date Recorded Within the last year, have y ou been afraid of your partner or ex-partner? No 01/14/2023 Within the last year, have y ou been humiliated or emotionally abused in other ways by your partner or ex-partner? No Within the last year, have y ou been kicked, hit, slapped, or otherwise physically hurt by your partner or ex-partner? No 01/14/2023 Within the last year, have y ou been raped or forced to have any kind of sexual activity by your partner or ex-partner? No 01/14/2023 Social Connection and Isolat ion Panel [NHANES] Answer Date Recorded In a typical week, how many times do you talk on the phone with family, friends, or neighbors? Three times a week 01/14/2023 How often do you get togethe r with friends or relatives? Once a week 01/14/2023 How often do you attend chur ch or muslim services? More than 4 times per year 01/14/2023 Do you belong to any clubs o r organizations such as mosque groups, unions, fraternal or athletic groups, or school groups? Yes 01/14/2023 How often do you attend meet ings of the clubs or organizations you belong to? 1 to 4 times per year 01/14/2023 Are you , , di vorced, , never , or living with a partner? 01/14/2023 AUDIT-C Answer Date Recorded Q1: How often do you have a drink containing alc ohol? Monthly or less 01/14/2023 Q2: How many drinks containi ng alcohol do you have on a typical day when you are drinking? 1 or 2 01/14/2023 Q3: How often do you have si x or more drinks on one occasion? Less than monthly 01/14/2023 Overall Financial Resource Strain (CARDIA) Answe r Date Recorded How hard is it for you to pa y for the very basics like food, housing, medical care, and heating? Not very hard 01/14/2023 PHQ-2 Answer Date Recorded PHQ-2 Score 0 03/09/2024 [facility] of Occupat ional Health - Occupational Stress Questionnaire Answer Date Recorded Do you feel stress - tense, restless, nervous, or anxious, or unable to sleep at night because your mind is troubled all the time - these days? Only a little 01/14/2023 Exercise Vital Sign Answer Date Recorde d On average, how many days pe r week do you engage in moderate to strenuous exercise (like a brisk walk)? 4 days 02/16/2024 On average, how many minutes do you engage in exercise at this level? 20 min 02/16/2024 Hunger Vital Sign Answer Date Recorded Within the past 12 months, y ou worried that your food would run out before you got the money to buy more. Never true 02/16/20 24 Within the past 12 months, t he food you bought just didn't last and you didn't have money to get more. Never true 02/16/2024 PRAPARE - Transportation Answer Date Re corded In the past 12 months, has l ack of transportation kept you from medical appointments or from getting medications? No 05/2024 In the past 12 months, has l ack of transportation kept you from meetings, work, or from getting things needed for daily living? No 02/16/2024 Depression Answer Date Recor ded PHQ-9 Total Score (max 27) 1 03/09 Nutrition Answer Date Recorded On average, how many serving s of fruits and vegetables do you eat per day (serving size is equal to 1 cup or approximately the size of a tennis ball)? 0-2 02/16/2024 Dental Answer Date Recorded Dental: Regular Dentist Yes 01/15/20 Employment Answer Date Recorded Employment status Employed and actively working without restrictions 02/16/2024 Housing Stability Answer Date Recorded What is your living situation today? I have a [facility] place to live 02/16/2024 Education Answer Date Recorded What is the highest level of school you have completed or the highest degree you have received? 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) 01/14/2023 Sex and Gender Information Value Date Recorded Sex Assigned at Male 08/06/2023 4:31 PM CDT Legal Sex Male 10:33 AM WEIGHER BULKER Gender Identity Male 01/31/2018 7:59 PM CDT Sexual Orientation Straight 01/31/2018 7: 59 PM CDT Last Filed Vital Signs Vital Sign Reading Time Taken Comments Blood Pressure 112/62 10/06/2024 9:01 AM WEIGHER BULKER Pulse 65 10/06/2024 9:01 AM WEIGHER BULKER Temperature 36.6 C (97.9 F) 10/06/2024 9:01 AM WEIGHER BULKER Respiratory Rate 14 03/09/2024 9:35 AM CDT Oxygen Saturation 100% 10/06/2024 9:01 AM WEIGHER BULKER Inhaled Oxygen Concentration - - Weight 88.1 kg (194 lb 3.6 oz) 10/06/2024 9:01 A M WEIGHER BULKER Height 188 cm (6' 2.02) 05/29/2023 11:13 AM CDT Body Mass Index 24.93 05/29/2023 11:13 AM CDT Plan of Treatment Health Maintenance Due Date Last Done Comments Depression Monitoring (PHQ-9) 07/09/2024 03/09/2024 Depression Monitoring (PHQ-9 for quality tracking) 11/11/2024 Lipid (Cholesterol) Screening 04/24/2028 04/24/2023, 02/05/2018 DTaP,Tdap,and Td Vaccines (4 - Td or Tdap) 08/07/2033 08/07/2023, 02/09/2013, 02/26/1997, Additional history exists Hepatitis B Vaccines Completed 08/23/1997, 04/22/1997, 02/26/1997 HIV Screening Completed 08/07/2023 Hepatitis C Screening Completed 08/07/2023 COVID-19 Vaccine Completed 10/06/2024, , 10/13/2021, Additional history exists Influenza Vaccine Completed 10/06/2024, , 10/13/2021, Additional history exists HPV Vaccines Aged Out No longer eligi ble based on patient's age to complete this topic IPV Vaccines Aged Out No longer eligi ble based on patient's age to complete this topic Pneumococcal vaccine (0-49 years) Aged Out No longer eligible based on patient's age to complete this topic Procedures Procedure Name Priority Date/Time Associated Diagnosis Comments QUANTIFERON-TB GOLD PLUS, B Routine 11/26/2024 3:12 PM WEIGHER BULKER Encounter For Screening For Respiratory Tuberculosis HCV AB SCRN W/REFLEX TO HCV PCR, S Routine 08/07/2023 10:02 AM CDT Screening Test Laboratory HIV-1/-2 AG AND AB SCREEN, PLASMA Routine 08/07/2023 10:02 AM CDT Human Immunodeficiency Virus Screening LIPID PANEL, S Routine 04/24/2023 9:57 AM CDT Screening Lipid from Last 3 Months or Most Recently Relevant to Health Maintenance Results * QuantiFERON-Tb Gold Plus, Blood (11/26/2024 3:12 PM WEIGHER BULKER) [facility] QuantiFERON-TB Gold Plus Result Negative Negative 11/29/2024 11:25 AM WEIGHER BULKER ECLR Comment: No interferon-gamma response to M. tuberculosis antigens was detected. Latent infection with M. tuberculosis is unlikely. A single negative result does not exclude infection with M. tuberculosis. In patients at high risk for M.tuberculosis infection, a second test should be considered in accordance with the 2017 ATS/IDSA/CDC Clinical Practice Guidelines for Diagnosis of Tuberculosis in Adults and Children [Inderinsohn DM et. al. Clin. Infect. Dis. 2017;64(2):111-115]. The reference range for the 'TB1 Ag minus Nil Result' and 'TB2 Ag minus Nil Result' is an Interferon-gamma level <0.35 IU/mL. TB1 Ag minus Nil Result 0.11 IU/mL 11/29/2024 11:25 AM WEIGHER BULKER ECLR TB2 Ag minus Nil Result 0.18 IU/mL 11/29/2024 11:25 AM WEIGHER BULKER ECLR Mitogen minus Nil Result >10.00 IU/mL 11/29/2024 11:25 AM WEIGHER BULKER ECLR Nil Result 0.08 IU/mL 11/29/2024 11:25 AM WEIGHER BULKER ECLR Blood (Blood, Venous) 11/26/2024 3:12 PM WEIGHER BULKER 11/26/2024 8:26 PM WEIGHER BULKER Narrative [facility] - 11/29/2024 11:25 AM WEIGHER BULKER Specimen Information: Specimen ID: [id number] Specimen Type: Blood Specimen Collection Start Date: 11/26/2024 3:12 PM Specimen Received Date: 11/26/2024 8:26 PM Specimen ID: [id number] Specimen Type: Blood Specimen Collection Start Date: 11/26/2024 3:12 PM Specimen Received Date: 11/26/2024 8:26 PM Specimen ID: [id number] Specimen Type: Blood Specimen Collection Start Date: 11/26/2024 3:12 PM Specimen Received Date: 11/26/2024 8:26 PM Specimen ID: [id number] Specimen Type: Blood Specimen Collection Start Date: 11/26/2024 3:12 PM Specimen Received Date: 11/26/2024 8:26 PM Carlos Enrique Strong M.D. LAB MICROBIOLOGY - BLOOD ORDERABLES Final Result [facility] [address] [place] [id number], [facility] ECLR [facility] in [address] [address] * HIV-1/-2 Ag and Ab Screen, Plasma (08/07/2023 10:02 AM CDT) [facility] HIV Ag/Ab Screen, P Negative Negative 08/08/2023 12:04 PM CDT ECLR Comment: Negative result does not rule out HIV infection. If exposure to HIV infection occurred <14 days ago, contact the laboratory to request addition of HIV-1/HIV-2 RNA detection, Plasma (HIP12). HIV-1 p24 Ag Screen, P Negative Negative 08/08/2023 12:04 PM CDT ECLR Comment: Negative result does not rule out HIV infection. If exposure to HIV infection occurred <14 days ago, contact the laboratory to request addition of HIV-1/HIV-2 RNA detection, Plasma (HIP12). HIV-1 Ab Screen, P Negative Negative 08/08/2023 12:04 PM CDT ECLR Comment: Negative result does not rule out HIV infection. If exposure to HIV infection occurred <14 days ago, contact the laboratory to request addition of HIV-1/HIV-2 RNA detection, Plasma (HIP12). HIV-2 Ab Screen, P Negative Negative 08/08/2023 12:04 PM CDT ECLR Comment: Negative result does not rule out HIV infection. If exposure to HIV infection occurred <14 days ago, contact the laboratory to request addition of HIV-1/HIV-2 RNA detection, Plasma (HIP12). Blood (Blood, Venous) 08/07/2023 10:02 AM CDT 08/07/2023 3:14 PM CDT Carlos Enrique Strong M.D. LAB MICROBIOLOGY - BLOOD ORDERABLES Final Result [facility] [address] [place] [id number], [facility] ECLR [facility] in [address] [address] * HCV Ab Scrn w/Reflex to HCV PCR, Serum (08/07/2023 10:02 AM CDT) HCV Ab Screen, S Negative Negative 08/07/20 23 4:30 PM CDT ECLR Comment: Biotin has been identified by the tap builder as a potential interfering substance. Higher concentrations of biotin may be found in multivitamins, hair/nail supplements, and workout supplements. If the result does not match clinical observations, repeat testing after patient refrains from the use of supplements for at least 12 hours. Blood (Blood, Venous) 08/07/2023 10:02 AM CDT 08/07/2023 3:14 PM CDT Narrative [facility] - 08/07/2023 4:30 PM CDT Specimen Information: Specimen ID: [id number] Specimen Type: Blood Specimen Collection Start Date: 08/07/2023 10:02 AM Specimen Received Date: 08/07/2023 3:14 PM Specimen ID: [id number] Specimen Type: Blood Specimen Collection Start Date: 08/07/2023 10:02 AM Specimen Received Date: 08/07/2023 3:13 PM Carlos Enrique Strong M.D. LAB MICROBIOLOGY - BLOOD ORDERABLES Final Result [facility] [address] [place] [address], [facility] ECLR [facility] [place] [address] * Lipid Panel (04/24/2023 9:57 AM CDT) Triglycerides 92 mg/dL 04/24/2023 2:51 PM CDT OWAT Comment: ----REFERENCE VALUE---- Normal: <150 mg/dL Borderline High: 150-199 mg/dL High: 200-499 mg/dL Very High: > or =500 mg/dL Cholesterol, Total 183 mg/dL 2022 2:51 PM CDT OWAT Comment: ----REFERENCE VALUE---- Desirable: < 200 mg/dL Borderline High: 200 - 239 mg/dL High: > or = 240 mg/dL Cholesterol, LDL, Calculated 105 mg/dL 04/24/2023 2:51 PM CDT OWAT Comment: ----REFERENCE VALUE---- Desirable: <100 mg/dL Above Desirable: 100-129 mg/dL Borderline High: 130-159 mg/dL High: 160-189 mg/dL Very High: >=190 mg/dL ----ADDITIONAL INFORMATION---- LDL cholesterol calculated using the Kessler/NIH equation. Cholesterol, HDL 61 >=40 mg/dL 04/24/20 2:51 PM CDT OWAT Cholesterol, Non-HDL, Calculated 122 mg/dL 04/24/2023 2:51 PM CDT OWAT Comment: ----REFERENCE VALUE---- Desirable: <130 mg/dL Above Desirable: 130-159 mg/dL Borderline High: 160-189 mg/dL High: 190-219 mg/dL Very High: > or =220 mg/dL Fasting (8 HR or more) no 04/24/2023 1:34 PM CDT OWAT Blood (Blood, Venous) 04/24/2023 9:57 AM CDT 04/24/2023 1:34 PM CDT Carlos Enrique Strong M.D. LAB BLOOD ADD-ON Final Re sult [facility] [address] [place] [address], [place] OWAT [facility] in [place] [address] [place] [address] from Last 3 Months or Most Recently Relevant to Health Maintenance Insurance [facility] Care Teams Snuff Grinder And Screener Relationship Specialty Start Date End Date Carlos Enrique Strong M.D. [address] [place] [phone] PCP - General Family Medicine 12/20/22
--- OUTSIDE RECORDS SUMMARY | 2024-12-04 12:00 | XMS_ITS | Encounter Summary ---
Author Organization [facility] Address [address] [place] [address] Care Team Providers Care Straight Knife Machine Cutter Name Role Phone Carlos Enrique Strong M.D. Primary Care Provider [phone] Encounter Details Date Type Department Care Team (Latest Contact Info) Description 11/26/2024 3:03 PM ORTHODONTIST VICE PRESIDENT - 11/26/2024 11:59 PM ORTHODONTIST VICE PRESIDENT Hospital Encounter Department of Laboratory Medicine in [address] [phone] Carlos Enrique Strong M.D. [address] [place] [phone] Encounter For Screening For Respiratory Tuberculosis Discharge Disposition: Home or Self Care Social History Tobacco Use Types Packs/Day Years Used Date Smoking Tobacco: Former Smokeless Tobacco: Never Alcohol Use Standard Drinks/Week Comments Yes 0 (1 standard drink = 0.6 oz pur e alcohol) occasional [facility] Utilities Answer Date Recorded In the past 12 months has e [employer] gas, oil, or water [employer] threatened to shut off services in your [...] often do you attend chur ch or church services? More than 4 times per year 01/14/2023 Do you belong to any clubs o r organizations such as christian groups, unions, fraternal or athletic groups, or [...] Answer Date Recorded PHQ-2 Score 0 03/09/2024 [facility] of Occupat ional Health - Occupational Stress [...] your living situation today? I have a [facility] place to live 02/16/2024 Education Answer Date Recorded What is the highest level of school you have completed or the highest degree you have received? 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 90 capsule 3 02/11/2024 omeprazole (PriLOSEC) [address] capsuleIndications:P ain Right Upper Quadrant,Nausea And Vomiting Take 1 capsule (20 mg total) by mouth daily. 90 capsule 3 02/17/2024 ondansetron ODT (ZOFRAN-ODT) 4 mg disintegrating tabletIndications:Na usea Dissolve 1 tablet (4 mg total) in the mouth every 8 (eight) hours as needed for nausea or vomiting for up to 10 doses. 10 tablet 03/09/2024 documented as of this encounter Plan of Treatment Not on file documented as of this encounter Procedures Procedure Name Priority Date/Time Associated Diagnosis Comments QUANTIFERON-TB GOLD PLUS, B Routine 11/26/2024 3:12 PM ORTHODONTIST VICE PRESIDENT Encounter For Screening For Respiratory Tuberculosis documented in this encounter Results * QuantiFERON-Tb Gold Plus, Blood (11/26/2024 3:12 PM ORTHODONTIST VICE PRESIDENT) [facility] QuantiFERON-TB Gold Plus Result Negative Negative 11/29/2024 11:25 AM ORTHODONTIST VICE PRESIDENT ECLR Comment: No interferon-gamma response to M. tuberculosis antigens was detected. Latent infection with M. tuberculosis is unlikely. A single negative result does not exclude infection with M. tuberculosis. In patients at high risk for M.tuberculosis infection, a second test should be considered in accordance with the 2017 ATS/IDSA/CDC Clinical Practice Guidelines for Diagnosis of Tuberculosis in Adults and Children [Lewinsohn DM et. al. Clin. Infect. Dis. 2017;64(2):111-115]. The reference range for the 'TB1 Ag minus Nil Result' and 'TB2 Ag minus Nil Result' is an Interferon-gamma level <0.35 IU/mL. TB1 Ag minus Nil Result 0.11 IU/mL 11/29/2024 11:25 AM ORTHODONTIST VICE PRESIDENT ECLR TB2 Ag minus Nil Result 0.18 IU/mL 11/29/2024 11:25 AM ORTHODONTIST VICE PRESIDENT ECLR Mitogen minus Nil Result >10.00 IU/mL 11/29/2024 11:25 AM ORTHODONTIST VICE PRESIDENT ECLR Nil Result 0.08 IU/mL 11/29/2024 11:25 AM ORTHODONTIST VICE PRESIDENT ECLR Blood (Blood, Venous) 11/26/2024 3:12 PM ORTHODONTIST VICE PRESIDENT 11/26/2024 8:26 PM ORTHODONTIST VICE PRESIDENT Narrative [facility] - 11/29/2024 11:25 AM ORTHODONTIST VICE PRESIDENT Specimen Information: Specimen ID: [id number] Specimen Type: Blood Specimen Collection Start Date: 11/26/2024 3:12 PM Specimen Received Date: 11/26/2024 8:26 PM Specimen ID: [id number] Specimen Type: Blood Specimen Collection Start Date: 11/26/2024 3:12 PM Specimen Received Date: 11/26/2024 8:26 PM Specimen ID: [id number] Specimen Type: Blood Specimen Collection Start Date: 11/26/2024 3:12 PM Specimen Received Date: 11/26/2024 8:26 PM Specimen ID: [id number] Specimen Type: Blood Specimen Collection Start Date: 11/26/2024 3:12 PM Specimen Received Date: 11/26/2024 8:26 PM Carlos Enrique Strong M.D. LAB MICROBIOLOGY - BLOOD ORDERABLES Final Result [facility] [address] [place] [address], [facility] ECLR [facility] [place] [address] documented in this encounter Visit Diagnoses Diagnosis Encounter For Screening For Respiratory Tuberculosis documented in this encounter Additional Health Concerns Assessment Noted Time PHQ-9 Depression Total Score: 1 03/09/20 24 8:48 AM CDT documented as of this encounter Care Teams Straight Knife Machine Cutter Relationship Specialty Start Date End Date Carlos Enrique Strong M.D. [address] [place] [phone] PCP - General Family Medicine 12/20/22 documented as of this encounter
--- OUTSIDE RECORDS SUMMARY | 2024-12-04 12:00 | XMS_ITS ---
Author Organization [facility] Address [address] [place] [address] Care Team Providers Care Heavy Duty Custodian Name Role Phone Unavailable Unavailable Unavailable Surgery Details Not on file Complications Check Surgery Details section. Procedure Estimated Blood Loss Check Surgery Details section. Procedure Findings Check Surgery Details section. Procedure Specimens Taken Check Surgery Details section.
--- OUTSIDE RECORDS SUMMARY | 2024-12-04 12:00 | XMS_ITS | Referral Summary ---
Author Organization [facility] Address [address] [place] [address] Care Team Providers Care Label Drier Name Role Phone Carlos Enrique Strong M.D. Primary Care Provider [phone] Source Comments Patient records contain information from all sites at [facility]. For routine questions regarding patient records, call [phone] during business hours, M-F 8:00 AM - 5:00 PM Central Time. Record requests for emergency care only can be directed to [phone] at any time.[facility] Encounters Date Type Department Care Team Description 11/26/2024 3:03 PM MARKER MAKER - 11/26/2024 11:59 PM MARKER MAKER Hospital Encounter Department of Laboratory Medicine in [address] [id number] Carlos Enrique Strong M.D. Encounter For Screening For Respiratory Tuberculosis Discharge Disposition: Home or Self Care 10/06/2024 9:00 AM MARKER MAKER Office Visit Department of Gastroenterology in [address] [phone] Elsy Qureshi APRN, C.N.P., D.N.P., M.S.N. Gastroesophageal Reflux Disease Without Esophagitis (Primary Dx); Pain Epigastric; Nausea; Gastroenteritis Viral Or Presumed Viral; Deficiency Alpha 1 Antitrypsin (HCC) Discharge Disposition: Home or Self Care from Last 3 Months Allergies No known active allergies Medications * [...] Depression Major One Episode Full Remission 01/09 Immunizations Immunization Administration Dates Next Due HepB, [...] (FLUZ ONE/FLUARIX) (6 months and older)(PF) 10/13/2021,07/20/2019 Social History Tobacco Use Types Packs/Day Years Used Date Smoking Tobacco: Former Smokeless Tobacco: Never Tobacco Cessation:Counseling Given: Not Answered Alcohol Use Standard Drinks/Week Comments Yes 0 (1 standard drink = 0.6 oz pur e alcohol) occasional [facility] Utilities Answer Date Recorded In the past 12 months has th e electric, gas, oil, or water company threatened to shut off services in your [...] often do you attend chur ch or latter day services? More than 4 times per year 01/14/2023 Do you belong to any clubs o r organizations such as yarsani groups, unions, fraternal or athletic groups, or [...] Answer Date Recorded PHQ-2 Score 0 03/09/2024 [facility] [place] of Occupat ional Health - Occupational Stress [...] Date Recorded Dental: Regular Dentist Yes 01/15/20 23 Employment Answer Date Recorded Employment status Employed and actively working without restrictions 02/16/2024 Housing Stability Answer Date Recorded What is your living situation today? I [place] a [place] [address] to live 02/16/2024 Education Answer Date Recorded What is the highest level of school you have completed or the highest degree you have received? Master's degree (e.g., MA, MS, Yonis, MEd, CARDIOVASCULAR PHYSICIAN ASSISTANT, CAREN) 01/14/2023 Sex and Gender Information Value Date Recorded Sex Assigned at Male 08/06/2023 4:31 PM CDT Legal Sex Male 10:33 AM MARKER MAKER Gender Identity Male 01/31/2018 7:59 PM CDT Sexual Orientation Straight 01/31/2018 7: 59 PM CDT Last Filed Vital Signs Vital Sign Reading Time Taken Comments Blood Pressure 112/62 10/06/2024 9:01 AM MARKER MAKER Pulse 65 10/06/2024 9:01 AM MARKER MAKER Temperature 36.6 C (97.9 F) 10/06/2024 9:01 AM MARKER MAKER Respiratory Rate 14 03/09/2024 9:35 AM CDT Oxygen Saturation 100% 10/06/2024 9:01 AM MARKER MAKER Inhaled Oxygen Concentration - - Weight 88.1 kg (194 lb 3.6 oz) 10/06/2024 9:01 A M MARKER MAKER Height 188 cm (6' 2.02) 05/29/2023 11:13 AM CDT Body Mass Index 24.93 05/29/2023 11:13 AM CDT Plan of Treatment Not on file Procedures Procedure Name Priority Date/Time Associated Diagnosis Comments QUANTIFERON-TB GOLD PLUS, B Routine 11/26/2024 3:12 PM MARKER MAKER Encounter For Screening For Respiratory Tuberculosis HCV [...] QuantiFERON-Tb Gold Plus, Blood (11/26/2024 3:12 PM MARKER MAKER) [facility] QuantiFERON-TB Gold Plus Result Negative Negative 11/29/2024 11:25 AM MARKER MAKER ECLR Comment: No interferon-gamma response to M. [...] Nil Result 0.11 IU/mL 11/29/2024 11:25 AM MARKER MAKER ECLR TB2 Ag minus Nil Result 0.18 IU/mL 11/29/2024 11:25 AM MARKER MAKER ECLR Mitogen minus Nil Result >10.00 IU/mL 11/29/2024 11:25 AM MARKER MAKER ECLR Nil Result 0.08 IU/mL 11/29/2024 11:25 AM MARKER MAKER ECLR Blood (Blood, Venous) 11/26/2024 3:12 PM MARKER MAKER 11/26/2024 8:26 PM MARKER MAKER Narrative [facility] - 11/29/2024 11:25 AM MARKER MAKER Specimen Information: Specimen ID: [id number] Specimen Type: Blood Specimen Collection Start Date: 11/26/2024 3:12 PM Specimen Received Date: 11/26/2024 8:26 PM Specimen ID: [id number] Specimen Type: Blood Specimen Collection Start Date: 11/26/2024 3:12 PM Specimen Received Date: 11/26/2024 8:26 PM Specimen ID: [id number] Specimen Type: Blood Specimen Collection Start Date: 11/26/2024 3:12 PM Specimen Received Date: 11/26/2024 8:26 PM Specimen ID: [id number] Specimen Type: Blood Specimen Collection Start Date: 11/26/2024 3:12 PM Specimen Received Date: 11/26/2024 8:26 PM Carlos Enrique Strong M.D. LAB MICROBIOLOGY - BLOOD ORDERABLES Final Result [facility] [address] [place] [id number], [facility] ECLR in [address] [address] * HIV-1/-2 Ag and Ab Screen, Plasma (08/07/2023 10:02 AM CDT) HIV Ag/Ab Screen, P Negative Negative 08/08/2023 [...] 10:02 AM CDT 08/07/2023 3:14 PM CDT us Carlos Enrique Strong M.D. LAB MICROBIOLOGY - BLOOD ORDERABLES Final Result [facility] [address] [place] [id number], [facility] ECLR in [address] [address] * HCV Ab Scrn w/Reflex to HCV PCR, Serum (08/07/2023 10:02 AM CDT) HCV Ab Screen, S Negative Negative 08/07/20 4:30 PM CDT ECLR Comment: Biotin has been identified by the tow mate as a potential interfering substance. Higher concentrations of biotin may be found in multivitamins, hair/nail supplements, and workout supplements. If the result does not match clinical observations, repeat testing after patient refrains from the use of supplements for at least 12 hours. Blood (Blood, Venous) 08/07/2023 10:02 AM CDT 08/07/2023 3:14 PM CDT Narrative [facility] - 08/07/2023 4:30 PM CDT Specimen Information: Specimen ID: [id number] Specimen Type: Blood Specimen Collection Start Date: 08/07/2023 10:02 AM Specimen Received Date: 08/07/2023 3:14 PM Specimen ID: [id number] Specimen Type: Blood Specimen Collection Start Date: 08/07/2023 10:02 AM Specimen Received Date: 08/07/2023 3:13 PM Carlos Enrique Strong M.D. LAB MICROBIOLOGY - BLOOD ORDERABLES Final Result [facility] [address] [place] [address], [facility] [place] [address] * Lipid Panel (04/24/2023 9:57 AM CDT) [...] M.D. LAB BLOOD ADD-ON Final Re sult [facility] [address] [place] [address], [place] [employer] [facility] in [place] [address] [place] [address] from Last 3 Months or Most Recently Relevant to Health Maintenance Insurance [facility] Care Teams Label Drier Relationship Specialty Start Date End Date Carlos Enrique Strong M.D. [id number] [address] PCP - General Family Medicine 12/20/22
[2024-12-04 12:22] VITALS: BP 126/83; PULSE 96; RESP 24; TEMP 36.5; O2SAT 98; BMI 24.4
--- NOTE | 2024-12-04 15:40 | CRLHL7_ITS ---
For Patients: As a result of the Century Cures Act, medical imaging exams and procedure reports are released immediately into your electronic medical record. You may view this report before your referring provider. If you have questions, please contact your health care provider. Indication: Right upper quadrant pain Technique: Ultrasound abdomen limited utilizing grayscale, duplex Doppler and color flow techniques Comparison: Report only abdominal ultrasound 07/22/2023 Findings: Pancreas: Partially visualized portions are grossly unremarkable. Abdominal aorta: Visualized portions are normal in caliber. IVC: Patent by color flow. Liver: Enlarged measuring 20 centimeters in length. Diffuse increased echogenicity is present throughout and there is a 19 millimeter cyst within the left lobe. There is hepatopetal flow within the main portal vein. Gallbladder: Not visualized/surgically absent. Common bile duct: 5 millimeters. Right kidney: In length. 12 centimeters normal cortical thickness and echogenicity. No stones or hydronephrosis. Free fluid: None. IMPRESSION: Hepatomegaly with increased echogenicity throughout the liver is compatible with infiltrative etiologies, most commonly hepatic steatosis. Dictated by Alex Hawthorne MD @ 12/04/2024 6:05:44 PM (Electronically Signed)
[2024-12-04] MEDS: ONDANSETRON 2 MG/ML inj 4 MG IVP (15:57)
[2024-12-04] MEDS: 0.9 % SODIUM CHLORIDE 1000 ml 1,000 ML IV (15:57)
--- NOTE | 2024-12-04 15:59 | ED.GENADULT ---
HPI - General Adult General Chief complaint: Nausea/Vomiting Stated complaint: Dehydrated, vomiting Time Seen by Provider: 12/04/24 15:32 Source: patient Mode of arrival: ambulatory Limitations: no limitations History of Present Illness HPI narrative: 39-year-old male presenting with abdominal pain. Patient states that the pain is located in the right upper quadrant and waxes and wanes. He has been having this pain for quite some time and has followed up with GI because of it. He states he has had a CT scan done and was normal. He states that he had his gallbladder removed and the pain has been present ever since. He states that is generally worse 1st thing in the morning when he has dry heaves and then it goes away. Every now and then it last much longer. This particular round has lasted many days. Today he has not been able to keep anything down and he is concerned that he is dehydrated. He has been told that there is potentially a stone in the bile duct but he has never had this evaluated. He is requesting an ultrasound and fluids today. He denies any fevers or chills. He has been taking a lot of Pepto-Bismol so his stools have been dark today and yesterday. No urinary symptoms such as frequency, urgency or dysuria. Bowel movements have been regular, no constipation. Passing gas normally. Patient denies any recent alcohol use. Upon further conversation patient tells me that he has had pain like this for several years and that when he had his gallbladder taken out at the end of 2022 his symptoms subsided for about 6 months before they returned. Related Data Home Medications ?Medication ?Instructions ?Recorded ?Confirmed fluoxetine 40 mg capsule 40 mg PO QAM 07/22/23 01/17/24 ondansetron 4 mg disintegrating 4 mg PO Q8H PRN 07/22/23 07/22/23 tablet Previous Rx's ?Medication ?Instructions ?Recorded amoxicillin 875 mg-potassium 1 tab PO BID #10 tabs 07/22/23 clavulanate 125 mg tablet hydrocodone 5 mg-acetaminophen 325 1 - 2 tab PO Q6H PRN Pain #10 tabs 07/22/23 mg tablet ketorolac 10 mg tablet 10 mg PO Q8H 5 days #15 tabs 01/17/24 ondansetron HCl 4 mg tablet 4 mg PO Q6H #20 tabs 01/17/24 Allergies Allergy/AdvReac Type Severity Reaction Status Date / Time No Known Drug Allergies Allergy Verified 01/17/24 09:42 Review of Systems Status of ROS: Reports: 10 or more systems reviewed and unremarkable except as noted in History and below [facility] Medical History OCD (obsessive compulsive disorder) ?F42.9 - Obsessive-compulsive disorder, unspecified (ICD-10) Surgical History S/P laparoscopic cholecystectomy ?Z90.49 - Acquired absence of other specified parts of digestive tract (ICD-10) Social History Narrative: 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 Smoking Status: Never smoker How often do you have a drink containing alcohol: never How often do you have six or more drinks on one occasion: Never AUDIT-C Alcohol total score: 0 Non-prescribed substance use: denies use Exam Narrative: Exam Narrative: Well-nourished well-developed patient in no acute distress although a bit anxious. Alert and oriented. Answers questions appropriately. Mood and affect are appropriate. Thoughts are goal oriented and rational. No tangential or magical thinking noted. Patient speaks in full sentences without needing to catch his breath. HEENT: Normocephalic atraumatic. Pupils are equally round reactive to light. Extraocular muscles are intact. Conjunctivae are moist without any icterus noted. Moist mucous membranes. Posterior pharynx is normal. Cardiovascular: Heart is regular rate and rhythm S1 and S2 are present without any murmurs. Lungs: Clear to auscultation bilaterally no wheezes rhonchi or rales are appreciated. Patient takes deep breaths without any discomfort. Abdomen: Soft and nondistended with normal bowel sounds. Patient has periumbilical discomfort. He has no right upper quadrant pain, no epigastric pain. When I ask him to point where his pain is coming from he points periumbilically and then he says ?it's all over?. Extremities: Bilateral lower extremities are without edema. Skin: Well perfused without any obvious rashes. Const: Vital Signs, click to edit/add: Vital Signs - 24 hr 12/04/24 12:22 12/04/24 17:11 Temperature 97.7 F 97.6 F Pulse Rate [Pulse Oximeter] 96 75 Respiratory Rate 24 18 Blood Pressure [Ri t Upper Arm] 126/83 114/86 Pulse Oximetry 98 96 Course Course ED Course: Differential diagnoses for chronic abdominal pain is broad but we need to think of things today including pancreatitis, small-bowel obstruction, appendicitis, stone in the bile duct. IV is established, labs were drawn and a right upper quadrant ultrasound is ordered. Normal saline, Zofran and Toradol are ordered. Patient did require oral hydrocodone for pain control as well. CBC was unremarkable. Potassium was slightly low at 3.5. Glucose was 140. Lactate was elevated at 3.8. AST was 78 and ALT 120. Normal alkaline phosphatase and normal bilirubin levels. CRP slightly elevated at 1.7. Protein levels were elevated with a total protein of 9 an albumin of 5.3. Urine has 4+ ketones, 2+ protein, 1+ bilirubin. We discussed doing a CT scan, however the patient states that he has had a CT scan in the past when he has had acute pain he does not feel like that would show anything new. He does follow-up with a shrimp peeler, he is currently taking omeprazole 20 mg p.o. daily. He has not had an EGD. Repeat lactate normalized at 1.3. Vital Signs Vital signs: Initial Vital Signs Temperature 97.7 F 12/04/24 12:22 Temperature Source Oral 12/04/24 12:22 Pulse Rate 96 12/04/24 12:22 Respiratory Rate 24 12/04/24 12:22 Blood Pressure 126/83 12/04/24 12:22 Blood Pressure Mean 97 12/04/24 12:22 Pulse Oximetry 98 12/04/24 12:22 Vital Signs Temperature 97.7 F 12/04/24 12:22 Pulse Rate 96 12/04/24 12:22 Respiratory Rate 24 12/04/24 12:22 Blood Pressure 126/83 12/04/24 12:22 Pulse Oximetry 98 12/04/24 12:22 Temperature 97.6 F 12/04/24 17:11 Pulse Rate 75 12/04/24 17:11 Respiratory Rate 18 12/04/24 17:11 Blood Pressure 114/86 12/04/24 17:11 Pulse Oximetry 96 12/04/24 17:11 Medications Administered Medications: Discontinued Medications Generic Name Dose Route Start Last Admin Trade Name Carl PRN Reason Stop Dose Admin Hydrocodone Bitart/Acetaminophen 1 tab 12/04/24 17:18 12/04/24 17:25 Hydrocodone-Acetamin 5-325 Mg 1 Tab PO 12/04/24 17:19 1 tab ONCE ONE Administration Sodium Chloride 1,000 mls @ 1,000 mls/hr 12/04/24 15:45 12/04/24 16:45 0.9 % Sodium Chloride 1000 Ml IV 12/04/24 16:44 Infused .Q1H FARNAZ Infusion Ketorolac Tromethamine 30 mg 12/04/24 16:03 12/04/24 16:28 Ketorolac 30 Mg/Ml Inj IVP 12/04/24 16:04 30 mg ONCE ONE Administration Ondansetron HCl 4 mg 12/04/24 15:39 12/04/24 15:57 Ondansetron 2 Mg/Ml Inj IVP 12/04/24 15:40 4 mg ONCE ONE Administration Medical Decision Making MDM Narrative Medical decision making narrative: 39-year-old male with chronic abdominal pain, increasing today with vomiting. He could certainly have a gastroenteritis on top of his chronic pain. He did present dehydrated. At this time patient wishes to do no further studies. He will go home with a copy of all his reports and he will share these things with his shrimp peeler. I recommend he call them 1st thing Saturday morning to schedule a follow-up visit and a probable EGD. Lab Data Lab results reviewed: Yes I reviewed the patient's lab results Labs: Lab Results 12/04/24 12/04/24 12/04/24 Range/Units 15:54 17:06 18:16 WBC 8.19 (4.50-11.00) K/uL RBC 5.99 H (4.30-5.90) m/uL Hgb 16.9 (13.5-17.5) gm/dL Hct 48.4 (37.0-53.0) % MCV 81 (80-100) fL MCH 28 (26-34) pg MCHC 35 (32-36) gm/dL RDW Coeff of Henrique 11.1 L (11.5-15.5) % Plt Count 333 (140-440) K/uL Neut % (Auto) 89.0 H (42.0-72.0) % Lymph % (Auto) 6.8 L (20-44) % [place] % (Auto) 3.8 (0.0-11.0) % Eos % (Auto) 0.0 (0.0-7.0) % Baso % (Auto) 0.0 (0.0-3.0) % Neut # (Auto) 7.30 H (1.7-7.0) K/uL Lymph # (Auto) 0.60 L (0.90-2.90) K/uL [place] # (Auto) 0.30 (0.00-0.90) K/UL Eos # (Auto) 0.00 (0.00-0.50) K/uL Baso # (Auto) 0.00 (0.00-0.30) K/uL Abs Immat Gran (auto) 0.03 (0.00-0.30) K/uL Imm/Tot Granulo (auto) 0.4 % Sodium 142 (135-149) mmol/L Potassium 3.5 L (3.6-5.1) mmol/L Chloride 100 (96-114) mmol/L Carbon Dioxide 22 (20-32) mmol/L Anion Gap 20 H (7-15) mEq/L BUN 14 (5-24) mg/dL Creatinine 0.8 (0.5-1.5) mg/dL Estimated Creat Clear 142.71 Estimated GFR 115 ml/min Glucose 140 H (60-115) mg/dL Lactate 3.8 H 1.3 (0.5-1.9) mmol/L Calcium 9.8 (8.4-10.6) mg/dL Total Bilirubin 1.1 (0.1-1.5) mg/dL Direct Bilirubin 0.5 (0.0-0.5) mg/dL AST 78 H (12-35) U/L ALT 120 H (4-50) U/L Alkaline Phosphatase 70 (40-150) U/L C-Reactive Protein 1.7 H (0.5-1.0) mg/dL Total Protein 9.0 H (6.0-8.3) g/dL Albumin 5.3 H (3.3-5.0) g/dL Lipase 57 (23-300) U/L Urine Color Yellow (Yellow) Urine Appearance Clear (Clear) Urine pH 6.0 (5.0-8.5) Ur Specific [place] >= 1.030 (1.000-1.030) Urine Protein 2+ A (Negative) Urine Glucose (UA) Negative (Negative) Urine Ketones 4+ A (Negative) Urine Blood Negative (Negative) Urine Nitrite Negative (Negative) Urine Bilirubin 1+ A (Negative) Urine Urobilinogen 0.2 (0.2-1.0) Ur Leukocyte Esterase Negative (Negative) Urine RBC 0-2 (0-2) Urine WBC 0-2 (0-5) Ur Squamous Epith Cells Few (None-Few) Urine Bacteria None (None) Imaging Data US - abdomen: Attestation: I have reviewed the pertinent imaging results. Radiologist's impression: Right upper quadrant pain Technique: Ultrasound abdomen limited utilizing grayscale, duplex Doppler and color flow techniques Comparison: Report only abdominal ultrasound 07/22/2023 Findings: Pancreas: Partially visualized portions are grossly unremarkable. Abdominal aorta: Visualized portions are normal in caliber. IVC: Patent by color flow. Liver: Enlarged measuring 20 centimeters in length. Diffuse increased echogenicity is present throughout and there is a 19 millimeter cyst within the left lobe. There is hepatopetal flow within the main portal vein. Gallbladder: Not visualized/surgically absent. Common bile duct: 5 millimeters. Right kidney: In length. 12 centimeters normal cortical thickness and echogenicity. No stones or hydronephrosis. Free fluid: None. IMPRESSION: Hepatomegaly with increased echogenicity throughout the liver is compatible with infiltrative etiologies, most commonly hepatic steatosis. Discharge Plan Discharge Clinical Impression: Abdominal pain, chronic, generalized, Vomiting Patient Disposition: Home, Self-Care Condition: Unchanged Additional Instructions: I do recommend you follow-up with her shrimp peeler this coming week and discuss the possibility of doing an endoscopy. Return to the ER if you develop fever or you cannot keep down anything because of vomiting. Prescriptions: No Action fluoxetine 40 mg capsule 40 mg PO QAM ondansetron 4 mg tablet,disintegrating 4 mg PO Q8H PRN hydrocodone-acetaminophen 5-325 mg Tablet 1 - 2 tab PO Q6H PRN (Reason: Pain) Qty: 10 0RF amoxicillin-pot clavulanate 875-125 mg tablet 1 tab PO BID Qty: 10 0RF ondansetron HCl 4 mg tablet 4 mg PO Q6H Qty: 20 0RF ketorolac 10 mg tablet 10 mg PO Q8H 5 Days Qty: 15 0RF Follow Up/Referrals: Case Strong MD [Primary Care Provider] - Stand Alone Forms: [employer] Payment Info Instructions
[2024-12-04 16:05] LABS: Lactate* 3.8 mmol/L (0.5-1.9)
[2024-12-04 16:10] LABS: Hematocrit 48.4 % (37.0-53.0); Hemoglobin* 16.9 gm/dL (13.5-17.5); Immature Granulocytes Abs Auto 0.03 K/uL (0.00-0.30); Immature Granulocytes Pct Auto 0.4 %; Lymphocytes Percent Auto 6.8 % (20-44); Mean Corpuscular HGB Conc 35 gm/dL (32-36); Mean Corpuscular Hemoglobin 28 pg (26-34); Mean Corpuscular Volume 81 fL (80-100); Monocytes Percent Auto 3.8 % (0.0-11.0); Platelet Count* 333 K/uL (140-440); RDW Coefficient of Variation % 11.1 % (11.5-15.5); Red Blood Count 5.99 m/uL (4.30-5.90); White Blood Count* 8.19 K/uL (4.50-11.00)
[2024-12-04 16:16] LABS: Slide Review Reflex No
[2024-12-04 16:20] LABS: Albumin* 5.3 g/dL (3.3-5.0); Chloride* 100 mmol/L (96-114)
--- OUTSIDE RECORDS SUMMARY | 2024-12-04 16:20 | XMS_ITS | Clinical Summary ---
Author Organization [facility] Address [address] [place] [address] Care Team Providers Care Coater Name Role Phone Carlos Enrique Strong M.D. Primary Care Provider +1 [phone] Source Comments Patient records contain information from all sites at [facility]. For routine questions regarding patient records, call [phone] during business hours, M-F 8:00 AM - 5:00 PM Central Time. Record requests for emergency care only can be directed to [phone] at any time.[facility] Allergies No known active allergies Medications * [...] Department Care Team Description 11/26/2024 3:03 PM SLURRY BLENDER - 11/26/2024 11:59 PM SLURRY BLENDER Hospital Encounter Department of Laboratory Medicine in [address] [phone] Carlos Enrique Strong M.D. Encounter For Screening For Respiratory Tuberculosis Discharge Disposition: Home or Self Care 10/06/2024 9:00 AM SLURRY BLENDER Office Visit Department of Gastroenterology in [address] [phone] Elsy Qureshi APRN, C.N.P., D.N.P., M.S.N. Gastroesophageal [...] = 0.6 oz pur e alcohol) occasional [facility] Utilities Answer Date Recorded In the past 12 months has e electric, gas, oil, or water [employer] threatened to shut off services in your [...] often do you attend chur ch or islam services? More than 4 times per year 01/14/2023 Do you belong to any clubs o r organizations such as temple groups, unions, fraternal or athletic groups, or [...] Answer Date Recorded PHQ-2 Score 0 03/09/2024 [facility] of Occupat ional Health - Occupational Stress [...] Master's degree (e.g., MA, MS, Yonis, MEd, AGRICULTURAL ENGINEERING TEACHER, CAREN) 01/14/2023 Sex and Gender Information Value Date Recorded Sex Assigned at Male 08/06/2023 4:31 PM CDT Legal Sex Male 10:33 AM SLURRY BLENDER Gender Identity Male 01/31/2018 7:59 PM CDT Sexual Orientation Straight 01/31/2018 7: 59 PM CDT Last Filed Vital Signs Vital Sign Reading Time Taken Comments Blood Pressure 112/62 10/06/2024 9:01 AM SLURRY BLENDER Pulse 65 10/06/2024 9:01 AM SLURRY BLENDER Temperature 36.6 C (97.9 F) 10/06/2024 9:01 AM SLURRY BLENDER Respiratory Rate 14 03/09/2024 9:35 AM CDT Oxygen Saturation 100% 10/06/2024 9:01 AM SLURRY BLENDER Inhaled Oxygen Concentration - - Weight 88.1 kg (194 lb 3.6 oz) 10/06/2024 9:01 A M SLURRY BLENDER Height 188 cm (6' 2.02) 05/29/2023 11:13 [...] GOLD PLUS, B Routine 11/26/2024 3:12 PM SLURRY BLENDER Encounter For Screening For Respiratory Tuberculosis HCV [...] QuantiFERON-Tb Gold Plus, Blood (11/26/2024 3:12 PM SLURRY BLENDER) [facility] QuantiFERON-TB Gold Plus Result Negative Negative 11/29/2024 11:25 AM SLURRY BLENDER ECLR Comment: No interferon-gamma response to M. [...] Nil Result 0.11 IU/mL 11/29/2024 11:25 AM SLURRY BLENDER ECLR TB2 Ag minus Nil Result 0.18 IU/mL 11/29/2024 11:25 AM SLURRY BLENDER ECLR Mitogen minus Nil Result >10.00 IU/mL 11/29/2024 11:25 AM SLURRY BLENDER ECLR Nil Result 0.08 IU/mL 11/29/2024 11:25 AM SLURRY BLENDER ECLR Blood (Blood, Venous) 11/26/2024 3:12 PM SLURRY BLENDER 11/26/2024 8:26 PM SLURRY BLENDER Narrative [facility] - 11/29/2024 11:25 AM SLURRY BLENDER Specimen Information: Specimen ID: [id number] Specimen Type: Blood Specimen Collection Start Date: 11/26/2024 3:12 PM Specimen Received Date: 11/26/2024 8:26 PM Specimen ID: [id number] Specimen Type: Blood Specimen Collection Start Date: 11/26/2024 3:12 PM Specimen Received Date: 11/26/2024 8:26 PM Specimen ID: [id number] Specimen Type: Blood Specimen Collection Start Date: 11/26/2024 3:12 PM Specimen Received Date: 11/26/2024 8:26 PM Specimen ID: [id number] Specimen Type: Blood Specimen Collection Start Date: 11/26/2024 3:12 PM Specimen Received Date: 11/26/2024 8:26 PM Carlos Enrique Strong M.D. LAB MICROBIOLOGY - BLOOD ORDERABLES Final Result [facility] [address] [place] [address], [facility] ECLR [facility] in [address] [address] * HIV-1/-2 Ag and Ab Screen, Plasma (08/07/2023 10:02 AM CDT) [facility] HIV Ag/Ab Screen, P Negative Negative 08/08/2023 [...] LAB MICROBIOLOGY - BLOOD ORDERABLES Final Result [facility] [address] [place] [address], [facility] ECLR [facility] in [address] [address] * HCV Ab Scrn w/Reflex to HCV PCR, Serum (08/07/2023 10:02 AM CDT) HCV Ab Screen, S Negative Negative 08/07/20 23 4:30 PM CDT ECLR Comment: Biotin has been identified by the lace and textiles restorer as a potential interfering substance. Higher concentrations of biotin may be found in multivitamins, hair/nail supplements, and workout supplements. If the result does not match clinical observations, repeat testing after patient refrains from the use of supplements for at least 12 hours. Blood (Blood, Venous) 08/07/2023 10:02 AM CDT 08/07/2023 3:14 PM CDT Narrative [facility] - 08/07/2023 4:30 PM CDT Specimen Information: Specimen ID: [id number] Specimen Type: Blood Specimen Collection Start Date: 08/07/2023 10:02 AM Specimen Received Date: 08/07/2023 3:14 PM Specimen ID: [id number] Specimen Type: Blood Specimen Collection Start Date: 08/07/2023 10:02 AM Specimen Received Date: 08/07/2023 3:13 PM Carlos Enrique Strong M.D. LAB MICROBIOLOGY - BLOOD ORDERABLES Final Result [facility] [address] [place] [address], [facility] ECLR [facility] [place] [address] * Lipid Panel (04/24/2023 9:57 AM CDT) [...] M.D. LAB BLOOD ADD-ON Final Re sult [facility] [address] [place] [address], [place] OWAT [facility] in [place] [address] [place] [address] from Last 3 Months or Most Recently Relevant to Health Maintenance Insurance [facility] Care Teams Coater Relationship Specialty Start Date End Date Carlos Enrique Strong M.D. [address] [place] [phone] PCP - General Family Medicine 12/20/22
--- OUTSIDE RECORDS SUMMARY | 2024-12-04 16:20 | XMS_ITS | Referral Summary ---
Author Organization [facility] Address [address] [place] [address] Care Team Providers Care Curriculum Coordinator Name Role Phone Carlos Enrique Strong M.D. Primary Care Provider [phone] [phone] Source Comments Patient records contain information from all sites at [facility]. For routine questions regarding patient records, call [phone] during business hours, M-F 8:00 AM - 5:00 PM Central Time. Record requests for emergency care only can be directed to [phone] at any time.[facility] Encounters Date Type Department Care Team Description 11/26/2024 3:03 PM BANQUET BARTENDER - 11/26/2024 11:59 PM BANQUET BARTENDER Hospital Encounter Department of Laboratory Medicine in [address] [phone] Carlos Enrique Strong M.D. Encounter For Screening For Respiratory Tuberculosis Discharge Disposition: Home or Self Care 10/06/2024 9:00 AM BANQUET BARTENDER Office Visit Department of Gastroenterology in [address] [phone] Elsy Qureshi APRN, C.N.P., D.N.P., M.S.N. Gastroesophageal [...] oz pur e alcohol) occasional [facility] Utilities Answer Date Recorded In the [...] often do you attend chur ch or holiness services? More than 4 times per year [...] Answer Date Recorded PHQ-2 Score 0 03/09/2024 [facility] of Occupat ional Health - Occupational Stress [...] Master's degree (e.g., MA, MS, Yonis, MEd, DATASTAGE ARCHITECT, CAREN) 01/14/2023 Sex and Gender Information Value Date Recorded Sex Assigned at Male 08/06/2023 4:31 PM CDT Legal Sex Male 10:33 AM BANQUET BARTENDER Gender Identity Male 01/31/2018 7:59 PM CDT Sexual Orientation Straight 01/31/2018 7: 59 PM CDT Last Filed Vital Signs Vital Sign Reading Time Taken Comments Blood Pressure 112/62 10/06/2024 9:01 AM BANQUET BARTENDER Pulse 65 10/06/2024 9:01 AM BANQUET BARTENDER Temperature 36.6 C (97.9 F) 10/06/2024 9:01 AM BANQUET BARTENDER Respiratory Rate 14 03/09/2024 9:35 AM CDT Oxygen Saturation 100% 10/06/2024 9:01 AM BANQUET BARTENDER Inhaled Oxygen Concentration - - Weight 88.1 kg (194 lb 3.6 oz) 10/06/2024 9:01 A M BANQUET BARTENDER Height 188 cm (6' 2.02) 05/29/2023 11:13 AM CDT Body Mass Index 24.93 05/29/2023 11:13 AM CDT Plan of Treatment Not on file Procedures Procedure Name Priority Date/Time Associated Diagnosis Comments QUANTIFERON-TB GOLD PLUS, B Routine 11/26/2024 3:12 PM BANQUET BARTENDER Encounter For Screening For Respiratory Tuberculosis HCV [...] QuantiFERON-Tb Gold Plus, Blood (11/26/2024 3:12 PM BANQUET BARTENDER) [facility] QuantiFERON-TB Gold Plus Result Negative Negative 11/29/2024 11:25 AM BANQUET BARTENDER ECLR Comment: No interferon-gamma response to M. [...] Nil Result 0.11 IU/mL 11/29/2024 11:25 AM BANQUET BARTENDER ECLR TB2 Ag minus Nil Result 0.18 IU/mL 11/29/2024 11:25 AM BANQUET BARTENDER ECLR Mitogen minus Nil Result >10.00 IU/mL 11/29/2024 11:25 AM BANQUET BARTENDER ECLR Nil Result 0.08 IU/mL 11/29/2024 11:25 AM BANQUET BARTENDER ECLR Blood (Blood, Venous) 11/26/2024 3:12 PM BANQUET BARTENDER 11/26/2024 8:26 PM BANQUET BARTENDER Narrative [facility] - 11/29/2024 11:25 AM BANQUET BARTENDER Specimen Information: Specimen ID: [id number] Specimen Type: Blood Specimen Collection Start Date: 11/26/2024 3:12 PM Specimen Received Date: 11/26/2024 8:26 PM Specimen ID: [id number] Specimen Type: Blood Specimen Collection Start Date: 11/26/2024 3:12 PM Specimen Received Date: 11/26/2024 8:26 PM Specimen ID: [id number] Specimen Type: Blood Specimen Collection Start Date: 11/26/2024 3:12 PM Specimen Received Date: 11/26/2024 8:26 PM Specimen ID: [id number] Specimen Type: Blood Specimen Collection Start Date: 11/26/2024 3:12 PM Specimen Received Date: 11/26/2024 8:26 PM Carlos Enrique Strong M.D. LAB MICROBIOLOGY - BLOOD ORDERABLES Final Result [facility] [address] [place] [address], [facility] ECLR [facility] in [address] [address] * HIV-1/-2 Ag and Ab Screen, Plasma [...] LAB MICROBIOLOGY - BLOOD ORDERABLES Final Result [facility] [address] [place] [id number], [facility] ECLR [facility] in [address] [address] * HCV Ab Scrn w/Reflex to HCV PCR, Serum (08/07/2023 10:02 AM CDT) HCV Ab Screen, S Negative Negative 08/07/20 4:30 PM CDT ECLR Comment: Biotin has been identified by the shirring tender as a potential interfering substance. Higher concentrations of biotin may be found in multivitamins, hair/nail supplements, and workout supplements. If the result does not match clinical observations, repeat testing after patient refrains from the use of supplements for at least 12 hours. Blood (Blood, Venous) 08/07/2023 10:02 AM CDT 08/07/2023 3:14 PM CDT Narrative [facility] - 08/07/2023 4:30 PM CDT Specimen Information: Specimen ID: [id number] Specimen Type: Blood Specimen Collection Start Date: 08/07/2023 10:02 AM Specimen Received Date: 08/07/2023 3:14 PM Specimen ID: [id number] Specimen Type: Blood Specimen Collection Start Date: 08/07/2023 10:02 AM Specimen Received Date: 08/07/2023 3:13 PM Carlos Enrique Strong M.D. LAB MICROBIOLOGY - BLOOD ORDERABLES Final Result [facility] [address] [place] [address], [facility] ECLR [facility] [place] [address] * Lipid Panel (04/24/2023 9:57 AM CDT) [...] AM CDT 04/24/2023 1:34 PM CDT Carlos nErique Strong M.D. LAB BLOOD ADD-ON Final Re sult [facility] [address] [place] [address], [place] OW[place] [facility] in [place] [address] [place] [address] from Last 3 Months or Most Recently Relevant to Health Maintenance Insurance [facility] Care Teams Curriculum Coordinator Relationship Specialty Start Date End Date Carlos Enrique Strong M.D. [address] [phone] PCP - General Family Medicine 12/20/22
--- OUTSIDE RECORDS SUMMARY | 2024-12-04 16:20 | XMS_ITS ---
Author Organization [facility] Address [address] [place] [address] Care Team Providers Care Air Brake Worker Name Role Phone Unavailable Unavailable Unavailable Surgery Details Not on file Complications Check Surgery Details section. Procedure Estimated Blood Loss Check Surgery Details section. Procedure Findings Check Surgery Details section. Procedure Specimens Taken Check Surgery Details section.
[2024-12-04 16:21] LABS: Potassium* 3.5 mmol/L (3.6-5.1); Sodium* 142 mmol/L (135-149)
--- OUTSIDE RECORDS SUMMARY | 2024-12-04 16:21 | XMS_ITS | Encounter Summary ---
Author Organization [facility] Address [address] [place] [address] Care Team Providers Care Inside Sales Associate Name Role Phone Carlos Enrique Strong M.D. Primary Care Provider [phone] [phone] Encounter Details Date Type Department Care Team (Latest Contact Info) Description 11/26/2024 3:03 PM GLOBAL ANALYTICS HEAD - 11/26/2024 11:59 PM GLOBAL ANALYTICS HEAD Hospital Encounter Department of Laboratory Medicine in [address] [phone] Carlos Enrique Strong M.D. [address] [place] [phone] Encounter For Screening For Respiratory Tuberculosis Discharge Disposition: Home or Self Care Social History Tobacco Use Types Packs/Day Years Used Date Smoking Tobacco: Former Smokeless Tobacco: Never Alcohol Use Standard Drinks/Week Comments Yes 0 (1 standard drink = 0.6 oz pur e alcohol) occasional [facility] Utilities Answer Date Recorded In the past 12 months has e [employer] gas, oil, or water [email or web address] threatened to shut off services in your [...] often do you attend chur ch or lutheran services? More than 4 times per year 01/14/2023 Do you belong to any clubs o r organizations such as samaritan groups, unions, fraternal or athletic groups, or [...] Answer Date Recorded PHQ-2 Score 0 03/09/2024 [facility] of Occupat ional Health - Occupational Stress [...] your living situation today? I have a [facility] place to live 02/16/2024 Education Answer Date Recorded What is the highest level of school you have completed or the highest degree you have received? Master's degree (e.g., MA, MS, Yonis, MEd, COMMERCIAL ILLUSTRATOR, CAREN) 01/14/2023 Sex and Gender Information Value Date Recorded Sex Assigned at Male 08/06/2023 4:31 PM CDT Legal Sex Male 10:33 AM GLOBAL ANALYTICS HEAD Gender Identity Male 01/31/2018 7:59 PM CDT [...] GOLD PLUS, B Routine 11/26/2024 3:12 PM GLOBAL ANALYTICS HEAD Encounter For Screening For Respiratory Tuberculosis documented in this encounter Results * QuantiFERON-Tb Gold Plus, Blood (11/26/2024 3:12 PM GLOBAL ANALYTICS HEAD) [facility] QuantiFERON-TB Gold Plus Result Negative Negative 11/29/2024 11:25 AM GLOBAL ANALYTICS HEAD ECLR Comment: No interferon-gamma response to M. [...] Nil Result 0.11 IU/mL 11/29/2024 11:25 AM GLOBAL ANALYTICS HEAD ECLR TB2 Ag minus Nil Result 0.18 IU/mL 11/29/2024 11:25 AM GLOBAL ANALYTICS HEAD ECLR Mitogen minus Nil Result >10.00 IU/mL 11/29/2024 11:25 AM GLOBAL ANALYTICS HEAD ECLR Nil Result 0.08 IU/mL 11/29/2024 11:25 AM GLOBAL ANALYTICS HEAD ECLR Blood (Blood, Venous) 11/26/2024 3:12 PM GLOBAL ANALYTICS HEAD 11/26/2024 8:26 PM GLOBAL ANALYTICS HEAD Narrative [facility] - 11/29/2024 11:25 AM GLOBAL ANALYTICS HEAD Specimen Information: Specimen ID: [id number] Specimen Type: Blood Specimen Collection Start Date: 11/26/2024 3:12 PM Specimen Received Date: 11/26/2024 8:26 PM Specimen ID: [id number] Specimen Type: Blood Specimen Collection Start Date: 11/26/2024 3:12 PM Specimen Received Date: 11/26/2024 8:26 PM Specimen ID: [id number] Specimen Type: Blood Specimen Collection Start Date: 11/26/2024 3:12 PM Specimen Received Date: 11/26/2024 8:26 PM Specimen ID: [id number] Specimen Type: Blood Specimen Collection Start Date: 11/26/2024 3:12 PM Specimen Received Date: 11/26/2024 8:26 PM Carlos Enrique Strong M.D. LAB MICROBIOLOGY - BLOOD ORDERABLES Final Result [facility] [address] [place] [address], [place] ECLR [facility] [place] [address] documented in this encounter Visit Diagnoses Diagnosis Encounter For Screening For Respiratory Tuberculosis documented in this encounter Additional Health Concerns Assessment Noted Time PHQ-9 Depression Total Score: 1 03/09/20 24 8:48 AM CDT documented as of this encounter Care Teams Inside Sales Associate Relationship Specialty Start Date End Date Carlos Enrique Strong M.D. [address] [place] [phone] PCP - General Family Medicine 12/20/22 documented as of this encounter
[2024-12-04 16:23] LABS: Creatinine* 0.8 mg/dL (0.5-1.5); Est. Creatinine Clearance* 142.71; Estimated Glomerular Filt Rate 115 ml/min
[2024-12-04 16:24] LABS: Alkaline Phosphatase* 70 U/L (40-150); Anion Gap 20 mEq/L (7-15); Aspartate Amino Transferase* 78 U/L (12-35); Bilirubin Direct* 0.5 mg/dL (0.0-0.5); Bilirubin Total* 1.1 mg/dL (0.1-1.5); Blood Urea Nitrogen* 14 mg/dL (5-24); Calcium* 9.8 mg/dL (8.4-10.6); Carbon Dioxide* 22 mmol/L (20-32); Glucose* 140 mg/dL (60-115); Lipase* 57 U/L (23-300)
[2024-12-04 16:27] LABS: C Reactive Protein* 1.7 mg/dL (0.5-1.0)
[2024-12-04] MEDS: KETOROLAC 30 MG/ML inj IVP (16:28)
[2024-12-04 16:31] LABS: Alanine Aminotransferase* 120 U/L (4-50)
[2024-12-04 17:11] VITALS: BP 114/86; PULSE 75; RESP 18; TEMP 36.4; O2SAT 96
[2024-12-04 17:12] LABS: Appearance Urine Clear (Clear); Bilirubin Urine 1+ (Negative); Blood Urine Negative (Negative); Color Urine Yellow (Yellow); Glucose Urine Negative (Negative); Ketones Urine 4+ (Negative); Leukocyte Esterase Urine Negative (Negative); Nitrite Urine Negative (Negative); Protein Urine 2+ (Negative); Specific Gravity Urine >= 1.030 (1.000-1.030); Urobilinogen Urine 0.2 (0.2-1.0)
[2024-12-04 17:25] LABS: RBC Urine 0-2 (0-2); Squamous Epithelial Cell Urine Few (None-Few); WBC Urine 0-2 (0-5)
[2024-12-04] MEDS: HYDROCODONE-ACETAMIN 5-325 MG 1 TAB PO (17:25)
[2024-12-04 18:56] LABS: Lactate* 1.3 mmol/L (0.5-1.9)
== END 2024-12-04 18:57 | disposition home or self-care (01) ==
PROVIDERS: Emergency Provider Family Medicine; PCP Student in an Organized Health Care Education/Training Program
DX: R10.9 Unspecified abdominal pain (principal); G89.29 Other chronic pain; R11.10 Vomiting, unspecified
CPT/HCPCS: 36415; 76705; 80048; 80076; 81001; 83605; 83690; 85025; 86140; 87086; 96374; 96375; 99284; A9270; J1885; J2405; J7030